=== PATIENT | female | born 1955 | race Caucasian/White ===

== ENCOUNTER 2021-09-07 05:12 | Inpatient (IN) | payer OTHER ==
[2021-09-07] MEDS ORDERED: KETOROLAC 15 MG/ML 1 ML VIAL IVP STA (05:35)
[2021-09-07] MEDS ORDERED: SODIUM CHLORIDE 0.9% 500 ML 500 ML IV STA (05:35)
[2021-09-07] MEDS ORDERED: SODIUM CHLORIDE 0.9% 1,000 ML IV STA ×2 (05:35)
[2021-09-07] MEDS ORDERED: ALBUTEROL HFA INHALER INHALATION STA (05:35)
[2021-09-07] MEDS ORDERED: DEXAMETHASONE SOD PHOSPHATE 10 MG/ML 1 ML VIAL IVP STA (05:35)
[2021-09-07] MEDS ORDERED: ACETAMINOPHEN TAB 500 MG TAB PO STA (05:35)
--- NOTE | 2021-09-07 05:38 | ED ---
SOB HPI - General Source: patient Mode of arrival: wheelchair Limitations: no limitations <Cosme Patel - Last Filed: 09/07/21 07:05> - General Source: patient, RN notes reviewed Mode of arrival: wheelchair Limitations: no limitations <Valdez Stanley - Last Filed: 09/07/21 07:47> - General Chief Complaint: Shortness of Breath Stated Complaint: SOB Time Seen by Provider: 09/07/21 05:17 - History of Present Illness Initial Comments: This a 65-year-old female presents to the emergency Department with chief complaint of cough congestion fever or chills. Patient states started Wednesday and Wednesday. Patient states the symptoms are progressing worsen. Patient has had no prior COVID-19 vaccination. Patient does have mild shortness of breath states that she just more achy, sightly dizzy. No GI symptoms. Patient is not taking any recent Tylenol Motrin. (Valdez Stanley) - Related Data Allergies Allergy/AdvReac Type Severity Reaction Status Date / Time No Known Allergies Allergy Verified 09/07/21 05:20 Review of Systems ROS Other: All systems not noted in ROS Statement are negative. <Cosme Patel - Last Filed: 09/07/21 07:05> ROS Other: All systems not noted in ROS Statement are negative. <Valdez Stanley - Last Filed: 09/07/21 07:47> ROS Statement: Those systems with pertinent positive or pertinent negative responses have been documented in the HPI. Past Medical History Past Medical History: Diabetes Mellitus, Hypertension History of Any Multi-Drug Resistant Organisms: None Reported Past Surgical History: Adenoidectomy, Appendectomy, Tonsillectomy Past Psychological History: No Psychological Hx Reported Smoking Status: Former smoker Past Alcohol Use History: None Reported Past Drug Use History: None Reported <Cosme Patel - Last Filed: 09/07/21 07:05> General Exam Limitations: no limitations <Cosme Patel - Last Filed: 09/07/21 07:05> General appearance: alert, in no apparent distress Head exam: Present: atraumatic, normocephalic, normal inspection Eye exam: Present: normal appearance, PERRL, EOMI. Absent: scleral icterus, conjunctival injection, periorbital swelling ENT exam: Present: normal exam, mucous membranes moist Neck exam: Present: normal inspection, full ROM. Absent: tenderness, meningismus, lymphadenopathy Respiratory exam: Present: decreased breath sounds. Absent: normal lung sounds bilaterally, respiratory distress, wheezes, rales, rhonchi, stridor Cardiovascular Exam: Present: normal rhythm, tachycardia, normal heart sounds. Absent: systolic murmur, diastolic murmur, rubs, gallop, clicks GI/Abdominal exam: Present: soft, normal bowel sounds. Absent: distended, tenderness, guarding, rebound, rigid <Valdez Stanley - Last Filed: 09/07/21 07:47> Course Vital Signs 09/07/21 09/07/21 09/07/21 05:13 06:19 06:48 Temperature 103.5 F H 102.8 F H Pulse Rate 118 H 102 H 94 Respiratory 20 18 18 Rate Blood Pressure 147/75 139/85 O2 Sat by Pulse 92 L 91 L 91 L Oximetry 09/07/21 07:42 Temperature Pulse Rate Respiratory Rate Blood Pressure O2 Sat by Pulse 88 L Oximetry Medical Decision Making - Lab Data Result diagrams: 09/07/21 06:02 09/07/21 06:02 - EKG Data -: EKG Interpreted by Me (EKG shows sinus tachycardia 102 IA 142 QRS 74 QTc 417) <Cosme Patel - Last Filed: 09/07/21 07:05> - Lab Data Result diagrams: 09/07/21 06:02 09/07/21 06:02 <Valdez Stanley - Last Filed: 09/07/21 07:47> - Medical Decision Making 64-year-old presented for cough congestion. Patient is positive for COVID-19. Patient did have some hypoxia events that 86-88 on room air. Patient be admitted for COVID-19. (Valdez Stanley) - Lab Data Lab Results 09/07/21 09/07/21 09/07/21 Range/Units 06:02 06:02 06:02 WBC 3.5 L (3.8-10.6) k/uL RBC 4.81 (3.80-5.40) m/uL Hgb 14.1 (11.4-16.0) gm/dL Hct 41.8 (34.0-46.0) % MCV 86.8 (80.0-100.0) fL MCH 29.3 (25.0-35.0) pg MCHC 33.8 (31.0-37.0) g/dL RDW 12.5 (11.5-15.5) % Plt Count 155 (150-450) k/uL MPV 7.9 Neutrophils % 73 % Lymphocytes % 18 % Monocytes % 6 % Eosinophils % 0 % Basophils % 1 % Neutrophils # 2.5 (1.3-7.7) k/uL Lymphocytes # 0.6 L (1.0-4.8) k/uL Monocytes # 0.2 (0-1.0) k/uL Eosinophils # 0.0 (0-0.7) k/uL Basophils # 0.0 (0-0.2) k/uL PT 10.3 (9.0-12.0) sec INR 1.0 (<1.2) APTT 23.1 (22.0-30.0) sec Sodium 136 L (137-145) mmol/L Potassium 5.0 (3.5-5.1) mmol/L Chloride 103 (98-107) mmol/L Carbon Dioxide 22 (22-30) mmol/L Anion Gap 11 mmol/L BUN 21 H (7-17) mg/dL Creatinine 1.06 H (0.52-1.04) mg/dL Est GFR (CKD-EPI)AfAm 65 (>60 ml/min/1.73 sqM) Est GFR (CKD-EPI)NonAf 56 (>60 ml/min/1.73 sqM) Glucose 194 H (74-99) mg/dL Plasma Lactic Acid Yoav (0.7-2.0) mmol/L Calcium 9.0 (8.4-10.2) mg/dL Magnesium 1.8 (1.6-2.3) mg/dL Total Bilirubin 0.3 (0.2-1.3) mg/dL AST 56 H (14-36) U/L ALT 26 (4-34) U/L Alkaline Phosphatase 74 (38-126) U/L Lactate Dehydrogenase 837 H (313-618) U/L C-Reactive Protein 17.1 H (<1.0) mg/dL Total Protein 6.8 (6.3-8.2) g/dL Albumin 4.0 (3.5-5.0) g/dL Coronavirus (PCR) (Not Detectd) 09/07/21 09/07/21 Range/Units 06:02 06:02 WBC (3.8-10.6) k/uL RBC (3.80-5.40) m/uL Hgb (11.4-16.0) gm/dL Hct (34.0-46.0) % MCV (80.0-100.0) fL MCH (25.0-35.0) pg MCHC (31.0-37.0) g/dL RDW (11.5-15.5) % Plt Count (150-450) k/uL MPV Neutrophils % % Lymphocytes % % Monocytes % % Eosinophils % % Basophils % % Neutrophils # (1.3-7.7) k/uL Lymphocytes # (1.0-4.8) k/uL Monocytes # (0-1.0) k/uL Eosinophils # (0-0.7) k/uL Basophils # (0-0.2) k/uL PT (9.0-12.0) sec INR (<1.2) APTT (22.0-30.0) sec Sodium (137-145) mmol/L Potassium (3.5-5.1) mmol/L Chloride (98-107) mmol/L Carbon Dioxide (22-30) mmol/L Anion Gap mmol/L BUN (7-17) mg/dL Creatinine (0.52-1.04) mg/dL Est GFR (CKD-EPI)AfAm (>60 ml/min/1.73 sqM) Est GFR (CKD-EPI)NonAf (>60 ml/min/1.73 sqM) Glucose (74-99) mg/dL Plasma Lactic Acid Yoav 1.0 (0.7-2.0) mmol/L Calcium (8.4-10.2) mg/dL Magnesium (1.6-2.3) mg/dL Total Bilirubin (0.2-1.3) mg/dL AST (14-36) U/L ALT (4-34) U/L Alkaline Phosphatase (38-126) U/L Lactate Dehydrogenase (313-618) U/L C-Reactive Protein (<1.0) mg/dL Total Protein (6.3-8.2) g/dL Albumin (3.5-5.0) g/dL Coronavirus (PCR) Detected A (Not Detectd) Disposition Is patient prescribed a controlled substance at d/c from ED?: No <Cosme Patel - Last Filed: 09/07/21 07:05> Time of Disposition: 07:47 <Valdez Stanley - Last Filed: 09/07/21 07:47> Clinical Impression: Coronavirus infection, Pneumonia due to COVID-19 virus, Hypoxia Disposition: ADMITTED IP TO THIS HOSP Condition: Fair Referrals: Nael Conner [Primary Care Provider] - 1-2 days
--- NOTE | 2021-09-07 06:11 | XR ---
EXAMINATION TYPE: XR chest 1V portable DATE OF EXAM: 09/07/2021 COMPARISON: NONE HISTORY: Pneumonia TECHNIQUE: Single view FINDINGS: Heart and mediastinum are within normal limits. Lungs are clear of consolidation. There are no hilar masses. There is some mild peripheral pulmonary infiltrate at the lateral lung bases. IMPRESSION: There is some mild peripheral pulmonary infiltrate at the lung bases. Normal heart.
[2021-09-07 06:20] LABS: Basophils % (A) 1 %; Eosinophils % (A) 0 %; HCT 41.8 % (34.0-46.0); HGB 14.1 gm/dL (11.4-16.0); Lymphocytes # (A) 0.6 k/uL (1.0-4.8); Lymphocytes % (A) 18 %; MCH 29.3 pg (25.0-35.0); MCHC 33.8 g/dL (31.0-37.0); MCV 86.8 fL (80.0-100.0); Mean Platelet Volume 7.9; Monocytes # (A) 0.2 k/uL (0-1.0); Monocytes % (A) 6 %; Neutrophils # (A) 2.5 k/uL (1.3-7.7); Neutrophils % (A) 73 %; Platelet Count 155 k/uL (150-450); RBC 4.81 m/uL (3.80-5.40); RDW 12.5 % (11.5-15.5); WBC 3.5 k/uL (3.8-10.6)
[2021-09-07 06:31] LABS: Magnesium 1.8 mg/dL (1.6-2.3); Total Bilirubin 0.3 mg/dL (0.2-1.3); Total Protein 6.8 g/dL (6.3-8.2)
[2021-09-07 06:37] LABS: Partial Thromboplastin Time 23.1 sec (22.0-30.0); Prothrombin Time 10.3 sec (9.0-12.0)
[2021-09-07 06:42] LABS: C Reactive Protein 17.1 mg/dL (<1.0)
[2021-09-07] MEDS ORDERED: IBUPROFEN 800 MG TAB PO STA (07:23)
[2021-09-07] MEDS ORDERED: CASIRIVIMAB/IMDEVIMAB (EUA) 1,200 MG in SODIUM CHLORIDE 0.9% 100 ML IVPB ONE (07:30)
[2021-09-07] MEDS ORDERED: ONDANSETRON 4 MG/2 ML VIAL IVP PRN (07:53)
[2021-09-07] MEDS ORDERED: NALOXONE 0.4 MG/ML 1 ML VIAL IV PRN (07:53)
[2021-09-07] MEDS ORDERED: IBUPROFEN 400 MG TAB PO PRN (07:53)
[2021-09-07] MEDS: SODIUM CHLORIDE 0.9% 1,000 ML IV SCH ×2 (07:57→17:04)
[2021-09-07] MEDS ORDERED: SODIUM CHLORIDE 0.9% 50 ML IVPB ONE (08:00)
--- NOTE | 2021-09-07 13:47 | P.CNPUL ---
History of Present Illness Consult date: 09/07/21 Reason for consult: dyspnea, pneumonia History of present illness: This is a 65-year-old female patient who came into the emergency department af ter complaining of some cough and chest congestion and some chills and feeling feverishness. Symptoms started to ask days ago and the patient has progressed since. The patient has no prior history of COVID 19 vaccination. In the emergency, she was complaining of some mild shortness of breath. She also was feeling dizzy. Further testing showed a fever of 103.5. She was hypoxic with pulse ox was under 90%. Her white count was at 3.5 with a platelet count of 155, creatinine was normal at 1.06. Normal coagulation profile. Mild transaminitis with an AST of 56, LDH was a 37, CRP was 17.1, glucose was 194, rest of the electrodes were all within normal limits. Lactic acid level was at 1.0 and the COVID 19 testing was negative. The patient's chest x-ray showed bilateral pulmonary infiltrates consistent with pneumonia and the patient was started on Decadron. The patient is currently on oxygen at 2 L per minute. The pro calcitonin level is at 0.25. D-dimer has not been checked yet. Review of Systems Constitutional: Reports fatigue (Average but he hasn't), Reports fever, Reports weakness Eyes: denies as per HPI, denies blurred vision, denies bulging eye, denies decreased vision, denies diplopia, denies discharge, denies dry eye, denies irritation, denies itching, denies pain, denies photophobia, denies loss of p eripheral vision, denies loss of vision, denies tunnel vision/blind spots Ears: deny: decreased hearing, ear discharge, earache, tinnitus Ears, nose, mouth and throat: Reports as per HPI Breasts: absent: as per HPI, change in shape, gynecomastia, masses, nipple discharge, pain, skin changes, swelling Cardiovascular: Reports as per HPI Respiratory: Reports as per HPI, Reports cough, Reports dyspnea Gastrointestinal: Reports as per HPI Genitourinary: Reports as per HPI Menstruation: Reports as per HPI Musculoskeletal: Reports as per HPI Musculoskeletal: absent: ankle pain, ankle stiffness, ankle swelling, as per HPI, elbow pain, elbow stiffness, elbow swelling, foot pain, foot stiffness, foot swelling, hand pain, hand stiffness, hand swelling, hip pain, hip stiffness, hip swelling, knee pain, knee stiffness, knee swelling, shoulder pain, shoulder stiffness, shoulder swelling, wrist pain, wrist stiffness, wrist swelling Integumentary: Reports as per HPI Neurological: Reports as per HPI Psychiatric: Reports as per HPI Endocrine: Reports as per HPI Hematologic/Lymphatic: Reports as per HPI Past Medical History Past Medical History: Diabetes Mellitus, Hypertension History of Any Multi-Drug Resistant Organisms: None Reported Past Surgical History: Adenoidectomy, Appendectomy, Tonsillectomy Past Psychological History: No Psychological Hx Reported Smoking Status: Former smoker Past Alcohol Use History: None Reported Past Drug Use History: None Reported Medications and Allergies Home Medications Medication Instructions Recorded Confirmed Type Atorvastatin Calcium [Lipitor] 5 mg PO Q48H 09/07/21 09/07/21 History Cholecalciferol [Vitamin D3 (25 50 mcg PO DAILY 09/07/21 09/07/21 History Mcg = 1000 Iu)] Losartan Potassium 100 mg PO DAILY 09/07/21 09/07/21 History Ubidecarenone [Co Q-10] 100 mg PO DAILY 09/07/21 09/07/21 History glipiZIDE [Glucotrol XL] 2.5 mg PO BID 09/07/21 09/07/21 History metFORMIN HCL [Glucophage XR] 1,500 mg PO W/SUPPER 09/07/21 09/07/21 History Allergies Allergy/AdvReac Type Severity Reaction Status Date / Time No Known Allergies Allergy Verified 09/07/21 05:20 Physical Exam Vitals: Vital Signs Temp Pulse Resp BP Pulse Ox 09/07/21 11:02 84 18 98/54 96 09/07/21 08:59 98.6 F 86 20 120/69 94 L 09/07/21 08:40 98.3 F 09/07/21 07:49 95 24 138/75 92 L 09/07/21 07:42 88 L 09/07/21 06:48 102.8 F H 94 18 91 L 09/07/21 06:19 102 H 18 139/85 91 L 09/07/21 05:13 103.5 F H 118 H 20 147/75 92 L Intake and Output 09/06/21 09/07/21 09/07/21 22:59 06:59 14:59 Other: Weight 81.647 kg General appearance: alert, in no apparent distress, the patient's breathing is nonlabored. Currently she is on oxygen at 2 L and her pulse ox is around 96%. She is breathing very comfortably at this point in time. She is communicating. No confusion. No altered mentation. Head exam: Present: atraumatic, normocephalic, normal inspection Eye exam: Present: normal appearance, PERRL, EOMI. Absent: scleral icterus, conjunctival injection, periorbital swelling ENT exam: Present: normal exam, mucous membranes moist Neck exam: Present: normal inspection, full ROM. Absent: tenderness, meningismus, lymphadenopathy Respiratory exam: Present: decreased breath sounds. Absent: normal lung sounds bilaterally, respiratory distress, wheezes, rales, rhonchi, stridor Cardiovascular Exam: Present: normal rhythm, tachycardia, normal heart sounds. Absent: systolic murmur, diastolic murmur, rubs, gallop, clicks GI/Abdominal exam: Present: soft, normal bowel sounds. Absent: distended, tenderness, guarding, rebound, rigid Examination of the extremities revealed easily palpable radial, femoral and pedal pulses. There was no cyanosis, clubbing or edema. Examination of the skin revealed no evidence of significant rashes, suspicious appearing nevi or other concerning lesions. Results - Laboratory Findings CBC and BMP: 09/07/21 06:02 09/07/21 06:02 PT/INR, D-dimer PT 10.3 sec (9.0-12.0) 09/07/21 06:02 INR 1.0 (<1.2) 09/07/21 06:02 Abnormal lab findings: Abnormal Labs 09/07/21 09/07/21 09/07/21 06:02 06:02 06:02 WBC 3.5 L Lymphocytes # 0.6 L Sodium 136 L BUN 21 H Creatinine 1.06 H Glucose 194 H Ferritin 469.0 H AST 56 H Lactate Dehydrogenase 837 H C-Reactive Protein 17.1 H Procalcitonin 0.25 H Coronavirus (PCR) 09/07/21 06:02 WBC Lymphocytes # Sodium BUN Creatinine Glucose Ferritin AST Lactate Dehydrogenase C-Reactive Protein Procalcitonin Coronavirus (PCR) Detected A - Diagnostic Findings Chest x-ray: image reviewed Assessment and Plan Plan: 1 acute COVID 19 related pneumonia. The patient symptoms started approximately 5 days ago and since then she's been having increased fever, chills, increased cough and some mild shortness of breath. She presented to us with hypoxemia and currently she is on 2 L about 2 by nasal cannula. Her is also infected. The patient is not vaccinated. She has mild elevation of inflammatory markers at this point in time. She is hemodynamically stable. Comorbidities include diabetes mellitus and hypertension 2 acute hypoxic respiratory failure secondary to above 3 diabetes mellitus 4 hypertension Plan We'll admit this patient to the hospital and keep her on oxygen at 2 L and monitor oxygen flow and saturation We'll start the patient on Decadron 6 mg IV every 24 hours She is an excellent candidate for Remdesivir this will be started per protocol We'll keep her on Lovenox 40 mg subcu for DVT prophylaxis Will monitor inflammatory markers We are going to check a baseline d-dimer She is essentially healthy yet nonvaccinated. She should have a good outcome theoretically. We'll continue to follow. Chest x-ray was reviewed and shows b ilateral lower lobe pulmonary infiltrates consistent with COVID 19 related pneumonia. We'll monitor the blood sugar. We'll continue to follow.
--- NOTE | 2021-09-07 14:05 | P.HPIM ---
History of Present Illness H&P Date: 09/07/21 This is a 65-year-old female with past medical history noted below significant for underlying diabetes that presented to the emergency room with worsening cough and shortness of breath. Patient was seen and evaluated by me this morning in the emergency room. Patient said that her symptoms started few days ago and is being getting progressively worse. Cough is generally nonproductive associated with feverish feeling. Patient denies any sick contact. She is not vaccinated for COVID-19. Patient was evaluated in the ER and was found to be hypoxic with O2 sat on room air around 85%. She tested positive for COVID-19. She will be admitted to the hospital for further management. Review of Systems Review of system: 14 points review of systems were obtained and were negative except to what were mentioned in the HPI. Past Medical History Past Medical History: Diabetes Mellitus, Hypertension History of Any Multi-Drug Resistant Organisms: None Reported Past Surgical History: Adenoidectomy, Appendectomy, Tonsillectomy Past Psychological History: No Psychological Hx Reported Smoking Status: Former smoker Past Alcohol Use History: None Reported Past Drug Use History: None Reported Medications and Allergies Home Medications Medication Instructions Recorded Confirmed Type Atorvastatin Calcium [Lipitor] 5 mg PO Q48H 09/07/21 09/07/21 History Cholecalciferol [Vitamin D3 (25 50 mcg PO DAILY 09/07/21 09/07/21 History Mcg = 1000 Iu)] Losartan Potassium 100 mg PO DAILY 09/07/21 09/07/21 History Ubidecarenone [Co Q-10] 100 mg PO DAILY 09/07/21 09/07/21 History glipiZIDE [Glucotrol XL] 2.5 mg PO BID 09/07/21 09/07/21 History metFORMIN HCL [Glucophage XR] 1,500 mg PO W/SUPPER 09/07/21 09/07/21 History Allergies Allergy/AdvReac Type Severity Reaction Status Date / Time No Known Allergies Allergy Verified 09/07/21 05:20 Physical Exam Vitals: Vital Signs Temp Pulse Resp BP Pulse Ox 09/07/21 11:02 84 18 98/54 96 09/07/21 08:59 98.6 F 86 20 120/69 94 L 09/07/21 08:40 98.3 F 09/07/21 07:49 95 24 138/75 92 L 09/07/21 07:42 88 L 09/07/21 06:48 102.8 F H 94 18 91 L 09/07/21 06:19 102 H 18 139/85 91 L 09/07/21 05:13 103.5 F H 118 H 20 147/75 92 L Intake and Output 09/06/21 09/07/21 09/07/21 22:59 06:59 14:59 Other: Weight 81.647 kg General: The patient is awake and alert, in no distress Eye: there is normal conjunctiva bilaterally. Neck: The neck is supple, there is no JVD. Cardiovascular: Normal S1-S2, no S3-S4, no murmurs. Respiratory: Lungs clear to auscultation bilaterally Gastrointestinal: Abdomen is soft, nontender Musculoskeletal: There is no pedal edema. Neurological:. Speech is normal. Skin: Skin is warm and dry Results CBC & Chem 7: 09/07/21 06:02 09/07/21 06:02 Labs: Abnormal Lab Results - Last 24 Hours (Table) 09/07/21 09/07/21 09/07/21 Range/Units 06:02 06:02 06:02 WBC 3.5 L (3.8-10.6) k/uL Lymphocytes # 0.6 L (1.0-4.8) k/uL Sodium 136 L (137-145) mmol/L BUN 21 H (7-17) mg/dL Creatinine 1.06 H (0.52-1.04) mg/dL Glucose 194 H (74-99) mg/dL Ferritin 469.0 H (10.0-291.0) ng/mL AST 56 H (14-36) U/L Lactate Dehydrogenase 837 H (313-618) U/L C-Reactive Protein 17.1 H (<1.0) mg/dL Procalcitonin 0.25 H (0.02-0.09) ng/mL Coronavirus (PCR) (Not Detectd) 09/07/21 Range/Units 06:02 WBC (3.8-10.6) k/uL Lymphocytes # (1.0-4.8) k/uL Sodium (137-145) mmol/L BUN (7-17) mg/dL Creatinine (0.52-1.04) mg/dL Glucose (74-99) mg/dL Ferritin (10.0-291.0) ng/mL AST (14-36) U/L Lactate Dehydrogenase (313-618) U/L C-Reactive Protein (<1.0) mg/dL Procalcitonin (0.02-0.09) ng/mL Coronavirus (PCR) Detected A (Not Detectd) Assessment and Plan Assessment: This is a 65-year-old female with past medical history noted below Presented to the emergency room with worsening shortness of breath and cough. She was evaluated and admitted to the hospital for further management of her medical problems noted below. 1. COVID-19 pneumonia with acute hypoxic respiratory failure: seen and evaluated by pulmonary. Started on Decadron and Remdesivir day #1. Continue vitamin C, vitamin D, and zinc supplements. 2. Type 2 diabetes, hold oral agents and continue sliding scale insulin 3. Mild acute kidney injury 4. Chronic medical problems: Essential hypertension, hyperlipidemia. Continue home medications 5. DVT prophylaxis with subcu Lovenox 6. CODE STATUS, patient is DO NOT RESUSCITATE/DO NOT INTUBATE. Discussed with her in detail is today at bedside Today, I reviewed her medication list and lab work results. Continue IV fluid hydration. Repeat lab work in the morning.
[2021-09-07] MEDS ORDERED: REMDESIVIR 200 MG in SODIUM CHLORIDE 0.9% 250 ML IVPB ONE (15:00)
[2021-09-07] MEDS: ATORVASTATIN 10 MG TAB PO SCH (15:34)
[2021-09-07 16:51] LABS: Glucose,Whole Blood 347 mg/dL (75-99)
[2021-09-07] MEDS: INSULIN ASPART (NovoLOG) 100 UNIT/ML VIAL SQ SCH ×2 (17:02→17:13)
[2021-09-07 21:03] LABS: Glucose,Whole Blood 374 mg/dL (75-99)
[2021-09-07] MEDS ORDERED: INSULIN ASPART (NovoLOG) 100 UNIT/ML VIAL SQ ONE (21:51)
[2021-09-08] MEDS: ACETAMINOPHEN TAB 325 MG TAB PO PRN (06:13)
[2021-09-08 07:28] LABS: Glucose,Whole Blood 255 mg/dL (75-99)
[2021-09-08] MEDS: LOSARTAN 50 MG TAB PO SCH (08:02)
[2021-09-08] MEDS: ZINC SULFATE 220 MG CAP PO SCH (08:02)
[2021-09-08] MEDS: ASCORBIC ACID 500 MG TAB PO SCH (08:02)
[2021-09-08] MEDS: CHOLECALCIFEROL 25 MCG (1000 IU) TABLET PO SCH (08:02)
[2021-09-08] MEDS: DEXAMETHASONE SOD PHOSPHATE 10 MG/ML 1 ML VIAL IVP SCH (08:02)
[2021-09-08] MEDS: ENOXAPARIN 40 MG/0.4 ML SYRINGE SQ SCH (08:03)
[2021-09-08] MEDS: INSULIN ASPART (NovoLOG) 100 UNIT/ML VIAL SQ SCH ×4 (08:03→21:49)
[2021-09-08 08:53] LABS: African American GFR (CKD) >90 (>60 ml/min/1.73 sqM); Anion Gap 9 mmol/L; Blood Urea Nitrogen 18 mg/dL (7-17); Calcium 8.1 mg/dL (8.4-10.2); Carbon Dioxide 22 mmol/L (22-30); Chloride 105 mmol/L (98-107); Glucose 306 mg/dL (74-99); Non-African American GFR(CKD) 88 (>60 ml/min/1.73 sqM); Potassium 4.5 mmol/L (3.5-5.1); Sodium 136 mmol/L (137-145)
[2021-09-08] MEDS ORDERED: NON FORMULARY DRUG (Ubidecarenone [Co Q-10] 100 MG Capsule) PO SCH (09:00)
[2021-09-08] MEDS: SODIUM CHLORIDE 0.9% 1,000 ML IV SCH (09:24)
[2021-09-08 11:09] LABS: Basophils # (A) 0.01 X 10*3/uL (0.00-0.10); Basophils % (A) 0.1 %; Eosinophils # (A) 0 X 10*3/uL (0.04-0.35); Eosinophils % (A) 0 %; HCT 37.7 % (37.2-46.3); HGB 12.3 g/dL (12.0-15.0); Lymphocytes # (A) 0.95 X 10*3/uL (0.90-5.00); Lymphocytes % (A) 12.6 %; MCH 28.1 pg (27.0-32.0); MCHC 32.6 g/dL (32.0-37.0); MCV 86.1 fL (80.0-97.0); Monocytes # (A) 0.67 X 10*3/uL (0.20-1.00); Monocytes % (A) 8.9 %; Neutrophils # (A) 5.86 X 10*3/uL (1.80-7.70); Neutrophils % (A) 77.9 %; Platelet Count 193 X 10*3/uL (140-440); RBC 4.38 X 10*6/uL (4.10-5.20); RDW 12.5 % (11.5-14.5); WBC 7.53 X 10*3/uL (4.50-10.00)
[2021-09-08 11:35] LABS: Glucose,Whole Blood 225 mg/dL (75-99)
[2021-09-08] MEDS: REMDESIVIR 100 MG in SODIUM CHLORIDE 0.9% 250 ML IVPB SCH (14:53)
--- NOTE | 2021-09-08 16:47 | P.PN ---
Subjective Patient is doing fairly well today. She denies any shortness of breath. Events overnight reported by nursing staff. Objective - Vital Signs Vital signs: Vital Signs Temp 98.0 F 09/08/21 14:59 Pulse 75 09/08/21 14:59 Resp 18 09/08/21 14:59 BP 147/71 09/08/21 14:59 Pulse Ox 92 L 09/08/21 15:03 Intake & Output 09/07/21 09/08/21 09/08/21 18:59 06:59 18:59 Weight 81.647 kg Other: Voiding Method Toilet # Voids 2 - Exam General: The patient is awake and alert, in no distress Eye: there is normal conjunctiva bilaterally. Neck: The neck is supple, there is no JVD. Cardiovascular: Normal S1-S2, no S3-S4, no murmurs. Respiratory: Lungs clear to auscultation bilaterally Gastrointestinal: Abdomen is soft, nontender Musculoskeletal: There is no pedal edema. Neurological:. Speech is normal. Skin: Skin is warm and dry - Labs CBC & Chem 7: 09/08/21 08:02 09/08/21 08:02 Labs: Abnormal Lab Results - Last 24 Hours (Table) 09/07/21 09/07/21 09/08/21 Range/Units 16:48 21:01 07:22 Eosinophils # (0.04-0.35) X 10*3/uL Sodium (137-145) mmol/L BUN (7-17) mg/dL Glucose (74-99) mg/dL POC Glucose (mg/dL) 347 H 374 H 255 H (75-99) mg/dL Calcium (8.4-10.2) mg/dL 09/08/21 09/08/21 09/08/21 Range/Units 08:02 08:02 11: Eosinophils # 0 L (0.04-0.35) X 10*3/uL Sodium 136 L (137-145) mmol/L BUN 18 H (7-17) mg/dL Glucose 306 H (74-99) mg/dL POC Glucose (mg/dL) 225 H (75-99) mg/dL Calcium 8.1 L (8.4-10.2) mg/dL Assessment and Plan Assessment: This is a 65-year-old female with past medical history noted below Presented to the emergency room with worsening shortness of breath and cough. She was evaluated and admitted to the hospital for further management of her medical problems noted below. 1. COVID-19 pneumonia with acute hypoxic respiratory failure: seen and evaluated by pulmonary. Started on Decadron and Remdesivir day #2. Continue vitamin C, vitamin D, and zinc supplements. 2. Type 2 diabetes, hold oral agents and continue sliding scale insulin 3. Mild acute kidney injury 4. Chronic medical problems: Essential hypertension, hyperlipidemia. Continue home medications 5. DVT prophylaxis with subcu Lovenox 6. CODE STATUS, patient is DO NOT RESUSCITATE/DO NOT INTUBATE. Discussed with her in detail is today at bedside Today, I reviewed her medication list and lab work results. Continue current regimen.
[2021-09-08 17:15] LABS: Glucose,Whole Blood 246 mg/dL (75-99)
--- NOTE | 2021-09-08 18:10 | P.PN ---
Subjective Progress Note Date: 09/08/21 Principal diagnosis: Hypoxia, COVID-19 pneumonia This is a 65-year-old female patient who came into the emergency department after complaining of some cough and chest congestion and some chills and feeling feverishness. Symptoms started to ask days ago and the patient has progressed since. The patient has no prior history of COVID 19 vaccination. In the emergency, she was complaining of some mild shortness of breath. She also was feeling dizzy. Further testing showed a fever of 103.5. She was hypoxic with pulse ox was under 90%. Her white count was at 3.5 with a platelet count of 155, creatinine was normal at 1.06. Normal coagulation profile. Mild transaminitis with an AST of 56, LDH was a 37, CRP was 17.1, glucose was 194, rest of the electrodes were all within normal limits. Lactic acid level was at 1.0 and the COVID 19 testing was negative. The patient's chest x-ray showed bilateral pulmonary infiltrates consistent with pneumonia and the patient was s tarted on Decadron. The patient is currently on oxygen at 2 L per minute. The pro calcitonin level is at 0.25. D-dimer has not been checked yet. On 09/08/2021 patient seen in follow-up on medical surgical floor, today is day 2 of Remdesivir treatment, patient also remains on Decadron 6 mg daily, in addition to prophylactic Lovenox 40 mg daily. She is sitting up in her chair, she states she is feeling better, denies any acute distress, she remains on 3 L of oxygen pulse ox of 92%, no fever or chills. Her chest x-ray on admission showed mild peripheral pulmonary infiltrates at the lung bases, normal heart. Today's labs have been reviewed, CBC is relatively unremarkable, electrolytes and renal profile were unremarkable Objective - Vital Signs Vital signs: Vital Signs Temp 98.0 F 09/08/21 14:59 Pulse 75 09/08/21 14:59 Resp 18 09/08/21 14:59 BP 147/71 09/08/21 14:59 Pulse Ox 92 L 09/08/21 15:03 Intake & Output 09/07/21 09/08/21 09/08/21 18:59 06:59 18:59 Weight 81.647 kg Other: Voiding Method Toilet # Voids 2 - Exam GENERAL EXAM: Alert, very pleasant, 65-year-old white female, on 3 L of oxygen the pulse ox 92% comfortable in no apparent distress. HEAD: Normocephalic/atraumatic. EYES: Normal reaction of pupils, equal size. Conjunctiva pink, sclera white. NOSE: Clear with pink turbinates. THROAT: No erythema or exudates. NECK: No masses, no JVD, no thyroid enlargement, no adenopathy. CHEST: No chest wall deformity. Symmetrical expansion. LUNGS: Equal air entry with mild bibasilar crackles CVS: Regular rate and rhythm, normal S1 and S2, no gallops, no murmurs, no rubs ABDOMEN: Soft, nontender. No hepatosplenomegaly, normal bowel sounds, no guarding or rigidity. EXTREMITIES: No clubbing, no edema, no cyanosis, 2+ pulses and upper and lower extremities. MUSCULOSKELETAL: Muscle strength and tone normal. SPINE: No scoliosis or deformity SKIN: No rashes CENTRAL NERVOUS SYSTEM: Alert and oriented -3. No focal deficits, tone is normal in all 4 extremities. PSYCHIATRIC: Alert and oriented -3. Appropriate affect. Intact judgment and insight. - Labs CBC & Chem 7: 09/08/21 08:02 09/08/21 08:02 Labs: Abnormal Lab Results - Last 24 Hours (Table) 09/07/21 09/08/21 09/08/21 Range/Units 21:01 07:22 08:02 Eosinophils # 0 L (0.04-0.35) X 10*3/uL Sodium (137-145) mmol/L BUN (7-17) mg/dL Glucose (74-99) mg/dL POC Glucose (mg/dL) 374 H 255 H (75-99) mg/dL Calcium (8.4-10.2) mg/dL 09/08/21 09/08/21 09/08/21 Range/Units 08:02 11:22 17:11 Eosinophils # (0.04-0.35) X 10*3/uL Sodium 136 L (137-145) mmol/L BUN 18 H (7-17) mg/dL Glucose 306 H (74-99) mg/dL POC Glucose (mg/dL) 225 H 246 H (75-99) mg/dL Calcium 8.1 L (8.4-10.2) mg/dL Assessment and Plan Plan: Assessment: #1. Acute COVID-19 pneumonia, patient came into the emergency department within 5 days of symptom onset in her symptoms including fever, cough, and shortness of breath. She was also hypoxic on presentation and requiring supplemental oxygen, she was not vaccinated, her is also infected. Patient was started on Remdesivir on 09/07/2021 #2. Acute hypoxic respiratory failure related to the above #3. Diabetes mellitus type 2 #4. Hypertension Plan: Continue Remdesivir, and today's day 2 of treatment Continue Decadron Continue prophylactic Lovenox Continue COVID 19 vitamins Patient is feeling better, breathing easier We'll continue to follow her clinical course I performed a history & physical examination of the patient and discussed their management with my nurse practitioner, Edna Flores. I reviewed the nurse practitioner's note and agree with the documented findings and plan of care. Lung sounds are positive for bibasilar crackles throughout the lung villalba. The findings and the impression was discussed with the patient. I attest to the documentation by the nurse practitioner. Time with Patient: Less than 30
[2021-09-08 19:52] LABS: Glucose,Whole Blood 311 mg/dL (75-99)
[2021-09-08] MEDS: INSULIN DETEMIR (LEVEMIR) 100 UNIT/ML SYR SQ SCH (21:49)
[2021-09-09 07:11] LABS: Glucose,Whole Blood 187 mg/dL (75-99)
--- NOTE | 2021-09-09 07:53 | XR ---
EXAMINATION TYPE: XR chest 1V portable DATE OF EXAM: 09/09/2021 CLINICAL HISTORY: Difficulty breathing progress study. COVID. TECHNIQUE: Single AP portable upright view of the chest is obtained. COMPARISON: Chest x-ray from 2 days earlier FINDINGS: There are worsening multifocal and confluent opacities in the periphery of both lungs. Car diac silhouette size stable and upper limits of normal. Osseous structures are intact. IMPRESSION: Worsening bilateral multifocal and confluent opacities in the periphery of the lungs cons istent with covid-19 infection progression.
[2021-09-09] MEDS: DEXAMETHASONE SOD PHOSPHATE 10 MG/ML 1 ML VIAL IVP SCH (08:08)
[2021-09-09] MEDS: ENOXAPARIN 40 MG/0.4 ML SYRINGE SQ SCH (08:08)
[2021-09-09] MEDS: ASCORBIC ACID 500 MG TAB PO SCH (08:09)
[2021-09-09] MEDS: ZINC SULFATE 220 MG CAP PO SCH (08:09)
[2021-09-09] MEDS: LOSARTAN 50 MG TAB PO SCH (08:09)
[2021-09-09] MEDS: CHOLECALCIFEROL 25 MCG (1000 IU) TABLET PO SCH (08:09)
[2021-09-09 11:40] LABS: Glucose,Whole Blood 231 mg/dL (75-99)
--- NOTE | 2021-09-09 12:10 | P.PN ---
Subjective Progress Note Date: 09/09/21 Principal diagnosis: Hypoxia, COVID-19 pneumonia This is a 65-year-old female patient who came into the emergency department after complaining of some cough and chest congestion and some chills and feeling feverishness. Symptoms started to ask days ago and the patient has progressed since. The patient has no prior history of COVID 19 vaccination. In the emergency, she was complaining of some mild shortness of breath. She also was feeling dizzy. Further testing showed a fever of 103.5. She was hypoxic with pulse ox was under 90%. Her white count was at 3.5 with a platelet count of 155, creatinine was normal at 1.06. Normal coagulation profile. Mild transaminitis with an AST of 56, LDH was a 37, CRP was 17.1, glucose was 194, rest of the electrodes were all within normal limits. Lactic acid level was at 1.0 and the COVID 19 testing was negative. The patient's chest x-ray showed bilateral pulmonary infiltrates consistent with pneumonia and the patient was s tarted on Decadron. The patient is currently on oxygen at 2 L per minute. The pro calcitonin level is at 0.25. D-dimer has not been checked yet. On 09/08/2021 patient seen in follow-up on medical surgical floor, today is day 2 of Remdesivir treatment, patient also remains on Decadron 6 mg daily, in addition to prophylactic Lovenox 40 mg daily. She is sitting up in her chair, she states she is feeling better, denies any acute distress, she remains on 3 L of oxygen pulse ox of 92%, no fever or chills. Her chest x-ray on admission showed mild peripheral pulmonary infiltrates at the lung bases, normal heart. Today's labs have been reviewed, CBC is relatively unremarkable, electrolytes and renal profile were unremarkable On 09/09/2021 patient seen in follow-up on medical surgical floor. She is currently on 3 L of oxygen, her pulse ox is 89%, she still coughing, but overall she feels better, she is ambulating in the room, she is trying to stay active, today is day 3 of Remdesivir. Decadron 6 mg daily, and prophylactic dose of Lovenox 40 mg daily, in addition she is also on COVID-19 vitamins. No new labs today. Follow-up chest x-ray was questionable bilateral multifocal and co nfluent opacities in the periphery of the lungs consistent with COVID-19 infection progression. No fever or chills, vital signs have been stable overnight. Objective - Vital Signs Vital signs: Vital Signs Temp 98.3 F 09/09/21 05:41 Pulse 94 09/09/21 05:41 Resp 16 09/09/21 05:41 BP 128/78 09/09/21 05:41 Pulse Ox 89 L 09/09/21 08:39 Intake & Output 09/08/21 09/09/21 09/09/21 18:59 06:59 18:59 Other: Voiding Method Toilet # Voids 2 2 - Exam GENERAL EXAM: Alert, very pleasant, 65-year-old white female, on 3 L of oxygen the pulse ox 89% comfortable in no apparent distress. HEAD: Normocephalic/atraumatic. EYES: Normal reaction of pupils, equal size. Conjunctiva pink, sclera white. NOSE: Clear with pink turbinates. THROAT: No erythema or exudates. NECK: No masses, no JVD, no thyroid enlargement, no adenopathy. CHEST: No chest wall deformity. Symmetrical expansion. LUNGS: Equal air entry with mild bibasilar crackles CVS: Regular rate and rhythm, normal S1 and S2, no gallops, no murmurs, no rubs ABDOMEN: Soft, nontender. No hepatosplenomegaly, normal bowel sounds, no guarding or rigidity. EXTREMITIES: No clubbing, no edema, no cyanosis, 2+ pulses and upper and lower extremities. MUSCULOSKELETAL: Muscle strength and tone normal. SPINE: No scoliosis or deformity SKIN: No rashes CENTRAL NERVOUS SYSTEM: Alert and oriented -3. No focal deficits, tone is normal in all 4 extremities. PSYCHIATRIC: Alert and oriented -3. Appropriate affect. Intact judgment and insight. - Labs CBC & Chem 7: 09/08/21 08:02 09/08/21 08:02 Labs: Abnormal Lab Results - Last 24 Hours (Table) 09/08/21 09/08/21 09/09/21 Range/Units 17:11 19:50 07:06 POC Glucose (mg/dL) 246 H 311 H 187 H (75-99) mg/dL 09/09/21 Range/Units 11:39 POC Glucose (mg/dL) 231 H (75-99) mg/dL Assessment and Plan Plan: Assessment: #1. Acute COVID-19 pneumonia, patient came into the emergency department within 5 days of symptom onset in her symptoms including fever, cough, and shortness of breath. She was also hypoxic on presentation and requiring supplemental oxygen, she was not vaccinated, her is also infected. Patient was started on Remdesivir on 09/07/2021 #2. Acute hypoxic respiratory failure related to the above #3. Diabetes mellitus type 2 #4. Hypertension Plan: Continue Remdesivir, and today's day 3 of treatment Continue Decadron 6 mg daily Continue prophylactic Lovenox Continue COVID 19 vitamins We will obtain a follow-up labs, d-dimer, and inflammatory markers for tomorrow Monitor for worsening hypoxia or dyspnea Clinically patient states she is feeling better, breathing easier We'll continue to monitor her clinical course And if no worsening and patient remains on minimal supplemental oxygen may consider discharge home in the next 24-48 hours I performed a history & physical examination of the patient and discussed their management with my nurse practitioner, Edna Flores. I reviewed the nurse practitioner's note and agree with the documented findings and plan of care. Lung sounds are positive for bibasilar crackles throughout the lung villalba. The findings and the impression was discussed with the patient. I attest to the documentation by the nurse practitioner. Time with Patient: Less than 30
[2021-09-09] MEDS: INSULIN ASPART (NovoLOG) 100 UNIT/ML VIAL SQ SCH ×4 (12:37→20:57)
[2021-09-09] MEDS: REMDESIVIR 100 MG in SODIUM CHLORIDE 0.9% 250 ML IVPB SCH (15:19)
[2021-09-09] MEDS: ATORVASTATIN 10 MG TAB PO SCH (15:19)
[2021-09-09] MEDS ORDERED: SODIUM CHLORIDE 0.65% NASAL SPRAY 44 ML BTL NASAL PRN (15:20)
[2021-09-09 16:29] LABS: Glucose,Whole Blood 234 mg/dL (75-99)
--- NOTE | 2021-09-09 19:04 | P.PN ---
Subjective Patient is doing fairly well today. She denies any shortness of breath. Events overnight reported by nursing staff. Objective - Vital Signs Vital signs: Vital Signs Temp 98.2 F 09/09/21 18:00 Pulse 83 09/09/21 18:00 Resp 18 09/09/21 18:00 BP 167/68 09/09/21 18:00 Pulse Ox 90 L 09/09/21 18:00 Intake & Output 09/08/21 09/09/21 09/09/21 18:59 06:59 18:59 Intake Total 1750 Balance 1750 Intake: Intake, IV Titration 250 Amount Remdesivir 100 mg In 250 Sodium Chloride 0.9% 250 ml @ 250 mls/hr IVPB DAILY@1500 [facility] Rx#: [id number] Oral 1500 Other: Voiding Method Toilet # Voids 2 2 5 - Exam General: The patient is awake and alert, in no distress Eye: there is normal conjunctiva bilaterally. Neck: The neck is supple, there is no JVD. Cardiovascular: Normal S1-S2, no S3-S4, no murmurs. Respiratory: Lungs clear to auscultation bilaterally Gastrointestinal: Abdomen is soft, nontender Musculoskeletal: There is no pedal edema. Neurological:. Speech is normal. Skin: Skin is warm and dry - Labs CBC & Chem 7: 09/08/21 08:02 09/08/21 08:02 Labs: Abnormal Lab Results - Last 24 Hours (Table) 09/08/21 09/09/21 09/09/21 Range/Units 19:50 07:06 11:39 POC Glucose (mg/dL) 311 H 187 H 231 H (75-99) mg/dL 09/09/21 Range/Units 16:28 POC Glucose (mg/dL) 234 H (75-99) mg/dL Assessment and Plan Assessment: This is a 65-year-old female with past medical history noted below Presented to the emergency room with worsening shortness of breath and cough. She was evaluated and admitted to the hospital for further management of her medical problems noted below. 1. COVID-19 pneumonia with acute hypoxic respiratory failure: seen and evaluated by pulmonary. Started on Decadron and Remdesivir day #2. Continue vitamin C, vitamin D, and zinc supplements. 2. Type 2 diabetes, hold oral agents and continue sliding scale insulin 3. Mild acute kidney injury 4. Chronic medical problems: Essential hypertension, hyperlipidemia. Continue home medications 5. DVT prophylaxis with subcu Lovenox 6. CODE STATUS, patient is DO NOT RESUSCITATE/DO NOT INTUBATE. Discussed with her in detail is today at bedside Today, I reviewed her medication list and lab work results. Continue current regimen.
[2021-09-09 20:55] LABS: Glucose,Whole Blood 272 mg/dL (75-99)
[2021-09-09] MEDS: INSULIN DETEMIR (LEVEMIR) 100 UNIT/ML SYR SQ SCH (20:58)
[2021-09-10 07:20] LABS: Glucose,Whole Blood 192 mg/dL (75-99)
[2021-09-10] MEDS: CHOLECALCIFEROL 25 MCG (1000 IU) TABLET PO SCH (07:55)
[2021-09-10] MEDS: INSULIN ASPART (NovoLOG) 100 UNIT/ML VIAL SQ SCH ×4 (07:55→20:31)
[2021-09-10] MEDS: ZINC SULFATE 220 MG CAP PO SCH (07:55)
[2021-09-10] MEDS: ASCORBIC ACID 500 MG TAB PO SCH (07:55)
[2021-09-10] MEDS: ENOXAPARIN 40 MG/0.4 ML SYRINGE SQ SCH (07:56)
[2021-09-10] MEDS: LOSARTAN 50 MG TAB PO SCH (07:56)
[2021-09-10] MEDS: DEXAMETHASONE SOD PHOSPHATE 10 MG/ML 1 ML VIAL IVP SCH (09:41)
[2021-09-10] MEDS: ACETAMINOPHEN TAB 325 MG TAB PO PRN (10:04)
[2021-09-10 11:52] LABS: Glucose,Whole Blood 294 mg/dL (75-99)
--- NOTE | 2021-09-10 12:31 | P.PN ---
Subjective Progress Note Date: 09/10/21 Principal diagnosis: Hypoxia, COVID-19 pneumonia This is a 65-year-old female patient who came into the emergency department after complaining of some cough and chest congestion and some chills and feeling feverishness. Symptoms started to ask days ago and the patient has progressed since. The patient has no prior history of COVID 19 vaccination. In the emergency, she was complaining of some mild shortness of breath. She also was feeling dizzy. Further testing showed a fever of 103.5. She was hypoxic with pulse ox was under 90%. Her white count was at 3.5 with a platelet count of 155, creatinine was normal at 1.06. Normal coagulation profile. Mild transaminitis with an AST of 56, LDH was a 37, CRP was 17.1, glucose was 194, rest of the electrodes were all within normal limits. Lactic acid level was at 1.0 and the COVID 19 testing was negative. The patient's chest x-ray showed bilateral pulmonary infiltrates consistent with pneumonia and the patient was s tarted on Decadron. The patient is currently on oxygen at 2 L per minute. The pro calcitonin level is at 0.25. D-dimer has not been checked yet. On 09/08/2021 patient seen in follow-up on medical surgical floor, today is day 2 of Remdesivir treatment, patient also remains on Decadron 6 mg daily, in addition to prophylactic Lovenox 40 mg daily. She is sitting up in her chair, she states she is feeling better, denies any acute distress, she remains on 3 L of oxygen pulse ox of 92%, no fever or chills. Her chest x-ray on admission showed mild peripheral pulmonary infiltrates at the lung bases, normal heart. Today's labs have been reviewed, CBC is relatively unremarkable, electrolytes and renal profile were unremarkable On 09/09/2021 patient seen in follow-up on medical surgical floor. She is currently on 3 L of oxygen, her pulse ox is 89%, she still coughing, but overall she feels better, she is ambulating in the room, she is trying to stay active, today is day 3 of Remdesivir. Decadron 6 mg daily, and prophylactic dose of Lovenox 40 mg daily, in addition she is also on COVID-19 vitamins. No new labs today. Follow-up chest x-ray was questionable bilateral multifocal and co nfluent opacities in the periphery of the lungs consistent with COVID-19 infection progression. No fever or chills, vital signs have been stable overnight. On 09/10/2021 patient seen in follow-up on medical surgical floor. She is currently on day 4 of Remdesivir treatment, she remains on 3 L of oxygen her pulse ox is 92%, she's been afebrile, although she states she is feeling better, coughing, she's been ambulating in the room, she's had no acute events overnight, no fever or chills, lung sounds reveal coarse diffuse bilateral crackles. His d-dimer has been noted and is within normal limits at 0.44, LDH has improved and is down to 483 from 837 on admission, his CRP is still pending for today. Remains on Decadron and prophylactic dose Lovenox in addition to COVID-19 vitamins Objective - Vital Signs Vital signs: Vital Signs Temp 97.9 F 09/10/21 10:00 Pulse 75 09/10/21 10:00 Resp 18 09/10/21 10:00 BP 157/86 09/10/21 10:00 Pulse Ox 92 L 09/10/21 10:00 Intake & Output 09/09/21 09/10/21 09/10/21 18:59 06:59 18:59 Intake Total 1750 Balance 1750 Intake: Intake, IV Titration 250 Amount Remdesivir 100 mg In 250 Sodium Chloride 0.9% 250 ml @ 250 mls/hr IVPB DAILY@1500 COUNT INCLUDES THE [facility] Rx#: [id number] Oral 1500 Other: Voiding Method Toilet # Voids 5 3 - Exam GENERAL EXAM: Alert, very pleasant, 65-year-old white female, on 3 L of oxygen the pulse ox 92% comfortable in no apparent distress. HEAD: Normocephalic/atraumatic. EYES: Normal reaction of pupils, equal size. Conjunctiva pink, sclera white. NOSE: Clear with pink turbinates. THROAT: No erythema or exudates. NECK: No masses, no JVD, no thyroid enlargement, no adenopathy. CHEST: No chest wall deformity. Symmetrical expansion. LUNGS: Equal air entry with mild bibasilar crackles CVS: Regular rate and rhythm, normal S1 and S2, no gallops, no murmurs, no rubs ABDOMEN: Soft, nontender. No hepatosplenomegaly, normal bowel sounds, no guarding or rigidity. EXTREMITIES: No clubbing, no edema, no cyanosis, 2+ pulses and upper and lower extremities. MUSCULOSKELETAL: Muscle strength and tone normal. SPINE: No scoliosis or deformity SKIN: No rashes CENTRAL NERVOUS SYSTEM: Alert and oriented -3. No focal deficits, tone is normal in all 4 extremities. PSYCHIATRIC: Alert and oriented -3. Appropriate affect. Intact judgment and insight. - Labs CBC & Chem 7: 09/08/21 08:02 09/08/21 08:02 Labs: Abnormal Lab Results - Last 24 Hours (Table) 09/09/21 09/09/21 09/10/21 Range/Units 16:28 20:51 06:10 POC Glucose (mg/dL) 234 H 272 H (75-99) mg/dL Lactate Dehydrogenase 483 H (120-246) U/L 09/10/21 09/10/21 Range/Units 07:03 11:50 POC Glucose (mg/dL) 192 H 294 H (75-99) mg/dL Lactate Dehydrogenase (120-246) U/L Assessment and Plan Plan: Assessment: #1. Acute COVID-19 pneumonia, patient came into the emergency department within 5 days of symptom onset in her symptoms including fever, cough, and shortness of breath. She was also hypoxic on presentation and requiring supplemental oxygen, she was not vaccinated, her is also infected. Patient was started on Remdesivir on 09/07/2021 #2. Acute hypoxic respiratory failure related to the above #3. Diabetes mellitus type 2 #4. Hypertension Plan: Continue Remdesivir, and today's day 4 of treatment Continue Decadron 6 mg daily Continue prophylactic Lovenox Continue COVID 19 vitamins Inflammatory markers are improving No worsening dyspnea or hypoxia Wean FiO2 to maintain O2 saturations at or above 90% Provide incentive spirometer, encouraged patient to use it We'll continue to follow her clinical course May consider discharge home in the next 24 hours, after completion of Remdesivir if remains stable I performed a history & physical examination of the patient and discussed their management with my nurse practitioner, Edna Flores. I reviewed the nurse practitioner's note and agree with the documented findings and plan of care. Lung sounds are positive for bibasilar crackles throughout the lung villalba. The findings and the impression was discussed with the patient. I attest to the documentation by the nurse practitioner. Time with Patient: Less than 30
[2021-09-10 13:10] LABS: C Reactive Protein 3.4 mg/dL (0.00-0.80)
--- NOTE | 2021-09-10 13:41 | P.PN ---
Subjective Progress Note Date: 09/10/21 Principal diagnosis: Patient feels better shortness of breath improved Constitutional: No acute distress, conversant, pleasant Eyes: Anicteric sclerae, moist conjunctiva, no lid-lag PERRLA ENMT: NC/AT Oropharynx clear, no erythema, exudates Neck: Supple, FROM, no masses, or JVD No carotid bruits No thyromegaly Lungs: no accessory muscle use Cardiovascular: Abdominal: Skin: Normal temperature, tone, texture, turgor No induration No subcutaneous nodules No rash, lesions No ulcers Extremities: No digital cyanosis No clubbing Pedal pulses intact and symmetrical Radial pulses intact and symmetrical Normal gait and station No calf tenderness Psychiatric:Alert and oriented to person, place and time Appropriate affect Intact judgement Neuro: This is a 65-year-old female with past medical history noted below Presented to the emergency room with worsening shortness of breath and cough. She was evaluated and admitted to the hospital for further management of her medical problems noted below. 1. COVID-19 pneumonia with acute hypoxic respiratory failure: seen and ev aluated by pulmonary. Started on Decadron and Remdesivir day #2. Continue vitamin C, vitamin D, and zinc supplements. 2. Type 2 diabetes, hold oral agents and continue sliding scale insulin 3. Mild acute kidney injury 4. Chronic medical problems: Essential hypertension, hyperlipidemia. Continue home medications 5. DVT prophylaxis with subcu Lovenox 6. CODE STATUS, patient is DO NOT RESUSCITATE/DO NOT INTUBATE. Discussed with her in detail is today at bedside Today, I reviewed her medication list and lab work results. Continue current regimen. Patient continued to be hypoxic we'll continue to wean hopefully discharge in 2- 3 day Objective - Vital Signs Vital signs: Vital Signs Temp 97.9 F 09/10/21 10:00 Pulse 75 09/10/21 10:00 Resp 18 09/10/21 10:00 BP 157/86 09/10/21 10:00 Pulse Ox 92 L 09/10/21 10:00 Intake & Output 09/09/21 09/10/21 09/10/21 18:59 06:59 18:59 Intake Total 1750 Balance 1750 Intake: Intake, IV Titration 250 Amount Remdesivir 100 mg In 250 Sodium Chloride 0.9% 250 ml @ 250 mls/hr IVPB DAILY@1500 [facility] Rx#: [id number] Oral 1500 Other: Voiding Method Toilet # Voids 5 3 - Labs CBC & Chem 7: 09/08/21 08:02 09/08/21 08:02 Labs: Abnormal Lab Results - Last 24 Hours (Table) 09/09/21 09/09/21 09/10/21 Range/Units 16:28 20:51 06:10 POC Glucose (mg/dL) 234 H 272 H (75-99) mg/dL Lactate Dehydrogenase 483 H (120-246) U/L C-Reactive Protein 3.40 H (0.00-0.80) mg/dL 09/10/21 09/10/21 Range/Units 07:03 11:50 POC Glucose (mg/dL) 192 H 294 H (75-99) mg/dL Lactate Dehydrogenase (120-246) U/L C-Reactive Protein (0.00-0.80) mg/dL
[2021-09-10] MEDS: REMDESIVIR 100 MG in SODIUM CHLORIDE 0.9% 250 ML IVPB SCH (15:30)
[2021-09-10 16:35] LABS: Glucose,Whole Blood 256 mg/dL (75-99)
[2021-09-10 20:12] LABS: Glucose,Whole Blood 321 mg/dL (75-99)
[2021-09-10] MEDS: INSULIN DETEMIR (LEVEMIR) 100 UNIT/ML SYR SQ SCH (20:32)
[2021-09-11 07:06] LABS: Glucose,Whole Blood 167 mg/dL (75-99)
[2021-09-11] MEDS: DEXAMETHASONE SOD PHOSPHATE 10 MG/ML 1 ML VIAL IVP SCH (09:00)
[2021-09-11] MEDS: ASCORBIC ACID 500 MG TAB PO SCH (09:00)
[2021-09-11] MEDS: ZINC SULFATE 220 MG CAP PO SCH (09:00)
[2021-09-11] MEDS: ENOXAPARIN 40 MG/0.4 ML SYRINGE SQ SCH (09:00)
[2021-09-11] MEDS: LOSARTAN 50 MG TAB PO SCH (09:00)
[2021-09-11] MEDS: CHOLECALCIFEROL 25 MCG (1000 IU) TABLET PO SCH (09:00)
[2021-09-11] MEDS: INSULIN ASPART (NovoLOG) 100 UNIT/ML VIAL SQ SCH ×4 (09:01→20:25)
--- NOTE | 2021-09-11 10:35 | P.PN ---
Subjective Progress Note Date: 09/11/21 Principal diagnosis: Patient feels better shortness of breath improved Constitutional: No acute distress, conversant, pleasant Eyes: Anicteric sclerae, moist conjunctiva, no lid-lag PERRLA ENMT: NC/AT Oropharynx clear, no erythema, exudates Neck: Supple, FROM, no masses, or JVD No carotid bruits No thyromegaly Lungs: no accessory muscle use Cardiovascular: Abdominal: Skin: Normal temperature, tone, texture, turgor No induration No subcutaneous nodules No rash, lesions No ulcers Extremities: No digital cyanosis No clubbing Pedal pulses intact and symmetrical Radial pulses intact and symmetrical Normal gait and station No calf tenderness Psychiatric:Alert and oriented to person, place and time Appropriate affect Intact judgement Neuro: This is a 65-year-old female with past medical history noted below Presented to the emergency room with worsening shortness of breath and cough. She was evaluated and admitted to the hospital for further management of her medical problems noted below. 1. COVID-19 pneumonia with acute hypoxic respiratory failure: seen and ev aluated by pulmonary. Started on Decadron and Remdesivir day #2. Continue vitamin C, vitamin D, and zinc supplements. 2. Type 2 diabetes, hold oral agents and continue sliding scale insulin 3. Mild acute kidney injury 4. Chronic medical problems: Essential hypertension, hyperlipidemia. Continue home medications 5. DVT prophylaxis with subcu Lovenox 6. CODE STATUS, patient is DO NOT RESUSCITATE/DO NOT INTUBATE. Discussed with her in detail is today at bedside Overall improving we'll continue to wean oxygen hopefully discharge in a day or 2 Objective - Vital Signs Vital signs: Vital Signs Temp 97.8 F 09/11/21 10:14 Pulse 60 09/11/21 10:14 Resp 18 09/11/21 10:14 BP 160/93 09/11/21 10:14 Pulse Ox 93 L 09/11/21 10:14 Intake & Output 09/10/21 09/11/21 09/11/21 18:59 06:59 18:59 Other: Voiding Method Toilet # Voids 3 3 - Labs CBC & Chem 7: 09/08/21 08:02 09/08/21 08:02 Labs: Abnormal Lab Results - Last 24 Hours (Table) 09/10/21 09/10/21 09/10/21 Range/Units 06:10 11:50 16:32 POC Glucose (mg/dL) 294 H 256 H (75-99) mg/dL C-Reactive Protein 3.40 H (0.00-0.80) mg/dL 09/10/21 09/11/21 Range/Units 20:08 07:05 POC Glucose (mg/dL) 321 H 167 H (75-99) mg/dL C-Reactive Protein (0.00-0.80) mg/dL
[2021-09-11 11:50] LABS: Glucose,Whole Blood 186 mg/dL (75-99)
[2021-09-11 12:14] LABS: Basophils % (A) 0 %; Eosinophils % (A) 0 %; HCT 38.1 % (34.0-46.0); HGB 12.9 gm/dL (11.4-16.0); Lymphocytes # (A) 0.6 k/uL (1.0-4.8); Lymphocytes % (A) 8 %; MCH 29.4 pg (25.0-35.0); MCHC 33.9 g/dL (31.0-37.0); MCV 86.7 fL (80.0-100.0); Mean Platelet Volume 7.4; Monocytes # (A) 0.6 k/uL (0-1.0); Monocytes % (A) 7 %; Neutrophils # (A) 6.3 k/uL (1.3-7.7); Neutrophils % (A) 81 %; Platelet Count 266 k/uL (150-450); RBC 4.39 m/uL (3.80-5.40); RDW 12.4 % (11.5-15.5); WBC 7.8 k/uL (3.8-10.6)
[2021-09-11 12:25] LABS: Anion Gap 4 mmol/L; Carbon Dioxide 31 mmol/L (22-30); Chloride 104 mmol/L (98-107); Glucose 174 mg/dL (74-99); Potassium 4.4 mmol/L (3.5-5.1); Sodium 139 mmol/L (137-145)
[2021-09-11 12:26] LABS: ALT 27 U/L (4-34); AST 40 U/L (14-36); African American GFR (CKD) >90 (>60 ml/min/1.73 sqM); Albumin 3.1 g/dL (3.5-5.0); Albumin/Globulin Ratio 1.2; Alkaline Phosphatase 57 U/L (38-126); Blood Urea Nitrogen 25 mg/dL (7-17); Calcium 8.9 mg/dL (8.4-10.2); Globulin 2.6 g/dL; Non-African American GFR(CKD) >90 (>60 ml/min/1.73 sqM); Total Bilirubin 0.4 mg/dL (0.2-1.3); Total Protein 5.7 g/dL (6.3-8.2)
--- NOTE | 2021-09-11 13:35 | P.PN ---
Subjective Progress Note Date: 09/11/21 Principal diagnosis: Hypoxia, COVID-19 pneumonia This is a 65-year-old female patient who came into the emergency department after complaining of some cough and chest congestion and some chills and feeling feverishness. Symptoms started to ask days ago and the patient has progressed since. The patient has no prior history of COVID 19 vaccination. In the emergency, she was complaining of some mild shortness of breath. She also was feeling dizzy. Further testing showed a fever of 103.5. She was hypoxic with pulse ox was under 90%. Her white count was at 3.5 with a platelet count of 155, creatinine was normal at 1.06. Normal coagulation profile. Mild transaminitis with an AST of 56, LDH was a 37, CRP was 17.1, glucose was 194, rest of the electrodes were all within normal limits. Lactic acid level was at 1.0 and the COVID 19 testing was negative. The patient's chest x-ray showed bilateral pulmonary infiltrates consistent with pneumonia and the patient was s tarted on Decadron. The patient is currently on oxygen at 2 L per minute. The pro calcitonin level is at 0.25. D-dimer has not been checked yet. On 09/08/2021 patient seen in follow-up on medical surgical floor, today is day 2 of Remdesivir treatment, patient also remains on Decadron 6 mg daily, in addition to prophylactic Lovenox 40 mg daily. She is sitting up in her chair, she states she is feeling better, denies any acute distress, she remains on 3 L of oxygen pulse ox of 92%, no fever or chills. Her chest x-ray on admission showed mild peripheral pulmonary infiltrates at the lung bases, normal heart. Today's labs have been reviewed, CBC is relatively unremarkable, electrolytes and renal profile were unremarkable On 09/09/2021 patient seen in follow-up on medical surgical floor. She is currently on 3 L of oxygen, her pulse ox is 89%, she still coughing, but overall she feels better, she is ambulating in the room, she is trying to stay active, today is day 3 of Remdesivir. Decadron 6 mg daily, and prophylactic dose of Lovenox 40 mg daily, in addition she is also on COVID-19 vitamins. No new labs today. Follow-up chest x-ray was questionable bilateral multifocal and co nfluent opacities in the periphery of the lungs consistent with COVID-19 infection progression. No fever or chills, vital signs have been stable overnight. On 09/10/2021 patient seen in follow-up on medical surgical floor. She is currently on day 4 of Remdesivir treatment, she remains on 3 L of oxygen her pulse ox is 92%, she's been afebrile, although she states she is feeling better, coughing, she's been ambulating in the room, she's had no acute events overnight, no fever or chills, lung sounds reveal coarse diffuse bilateral crackles. His d-dimer has been noted and is within normal limits at 0.44, LDH has improved and is down to 483 from 837 on admission, his CRP is still pending for today. Remains on Decadron and prophylactic dose Lovenox in addition to COVID-19 vitamins On 09/11/2021 patient seen in follow-up on medical surgical floor. Today is day 5 of her Remdesivir treatment, she continues on Decadron, prophylactic Lovenox and COVID-19 vitamins, clinically she is feeling better, she is breathing easier, she is currently on 3 L of oxygen her pulse ox is 89-94%, still coughing some, but overall improving, his labs have been reviewed, white blood cell count is 7.8, hemoglobin is 12.9, lymphocyte count is 0.6, sodium is 139, potassium is 4.4, chloride is 104, CO2 is 31, BUN is 25 creatinine 0.69 Objective - Vital Signs Vital signs: Vital Signs Temp 97.8 F 09/11/21 10:14 Pulse 60 09/11/21 10:14 Resp 18 09/11/21 10:14 BP 160/93 09/11/21 10:14 Pulse Ox 93 L 09/11/21 10:14 Intake & Output 09/10/21 09/11/21 09/11/21 18:59 06:59 18:59 Other: Voiding Method Toilet # Voids 3 3 - Exam GENERAL EXAM: Alert, very pleasant, 65-year-old white female, on 3 L of oxygen the pulse ox 92% comfortable in no apparent distress. HEAD: Normocephalic/atraumatic. EYES: Normal reaction of pupils, equal size. Conjunctiva pink, sclera white. NOSE: Clear with pink turbinates. THROAT: No erythema or exudates. NECK: No masses, no JVD, no thyroid enlargement, no adenopathy. CHEST: No chest wall deformity. Symmetrical expansion. LUNGS: Equal air entry with mild bibasilar crackles CVS: Regular rate and rhythm, normal S1 and S2, no gallops, no murmurs, no rubs ABDOMEN: Soft, nontender. No hepatosplenomegaly, normal bowel sounds, no guarding or rigidity. EXTREMITIES: No clubbing, no edema, no cyanosis, 2+ pulses and upper and lower extremities. MUSCULOSKELETAL: Muscle strength and tone normal. SPINE: No scoliosis or deformity SKIN: No rashes CENTRAL NERVOUS SYSTEM: Alert and oriented -3. No focal deficits, tone is normal in all 4 extremities. PSYCHIATRIC: Alert and oriented -3. Appropriate affect. Intact judgment and insight. - Labs CBC & Chem 7: 09/11/21 11:48 09/11/21 11:48 Labs: Abnormal Lab Results - Last 24 Hours (Table) 09/10/21 09/10/21 09/11/21 Range/Units 16:32 20:08 07:05 Lymphocytes # (1.0-4.8) k/uL Carbon Dioxide (22-30) mmol/L BUN (7-17) mg/dL Glucose (74-99) mg/dL POC Glucose (mg/dL) 256 H 321 H 167 H (75-99) mg/dL AST (14-36) U/L Total Protein (6.3-8.2) g/dL Albumin (3.5-5.0) g/dL 09/11/21 09/11/21 09/11/21 Range/Units 11:48 11:48 11:49 Lymphocytes # 0.6 L (1.0-4.8) k/uL Carbon Dioxide 31 H (22-30) mmol/L BUN 25 H (7-17) mg/dL Glucose 174 H (74-99) mg/dL POC Glucose (mg/dL) 186 H (75-99) mg/dL AST 40 H (14-36) U/L Total Protein 5.7 L (6.3-8.2) g/dL Albumin 3.1 L (3.5-5.0) g/dL Assessment and Plan Plan: Assessment: #1. Acute COVID-19 pneumonia, patient came into the emergency department within 5 days of symptom onset in her symptoms including fever, cough, and shortness of breath. She was also hypoxic on presentation and requiring supplemental oxygen, she was not vaccinated, her is also infected. Patient was started on Remdesivir on 09/07/2021 #2. Acute hypoxic respiratory failure related to the above #3. Diabetes mellitus type 2 #4. Hypertension Plan: Patient is completing her course of Remdesivir today Continue Decadron 6 mg daily Continue prophylactic Lovenox Continue COVID 19 vitamins Clinically she continues to improve No worsening dyspnea or hypoxia Wean FiO2 to maintain O2 saturations at or above 90% Patient has remained stable from pulmonary perspective, overall improving We'll try to wean her off the oxygen today She can be considered for discharge home when cleared by medicine Outpatient follow-up with Dr. Ritchie in the office in 2 weeks Patient can finish outpatient course of Decadron for a total of 10 days and she can continue on vitamin D, C and zinc I performed a history & physical examination of the patient and discussed their management with my nurse practitioner, Edna Flores. I reviewed the nurse practitioner's note and agree with the documented findings and plan of care. Lung sounds are positive for bibasilar crackles throughout the lung villalba. The findings and the impression was discussed with the patient. I attest to the documentation by the nurse practitioner. Time with Patient: Less than 30
[2021-09-11 15:01] VITALS: BMI 28.1
[2021-09-11] MEDS: ATORVASTATIN 10 MG TAB PO SCH (15:16)
[2021-09-11] MEDS: REMDESIVIR 100 MG in SODIUM CHLORIDE 0.9% 250 ML IVPB SCH (15:19)
[2021-09-11 17:06] LABS: Glucose,Whole Blood 284 mg/dL (75-99)
[2021-09-11 20:14] LABS: Glucose,Whole Blood 301 mg/dL (75-99)
[2021-09-11] MEDS: amLODIPine 5 MG TAB PO SCH (20:25)
[2021-09-11] MEDS: INSULIN DETEMIR (LEVEMIR) 100 UNIT/ML SYR SQ SCH (20:25)
[2021-09-12 07:07] LABS: Glucose,Whole Blood 131 mg/dL (75-99)
[2021-09-12] MEDS: DEXAMETHASONE SOD PHOSPHATE 10 MG/ML 1 ML VIAL IVP SCH (08:08)
[2021-09-12] MEDS: INSULIN ASPART (NovoLOG) 100 UNIT/ML VIAL SQ SCH ×2 (08:09→11:54)
[2021-09-12] MEDS: ASCORBIC ACID 500 MG TAB PO SCH (08:10)
[2021-09-12] MEDS: LOSARTAN 50 MG TAB PO SCH (08:10)
[2021-09-12] MEDS: amLODIPine 5 MG TAB PO SCH (08:10)
[2021-09-12] MEDS: CHOLECALCIFEROL 25 MCG (1000 IU) TABLET PO SCH (08:10)
[2021-09-12] MEDS: ZINC SULFATE 220 MG CAP PO SCH (08:10)
[2021-09-12] MEDS: ENOXAPARIN 40 MG/0.4 ML SYRINGE SQ SCH (08:10)
[2021-09-12] MEDS ORDERED: AZITHROMYCIN 500 MG in SODIUM CHLORIDE 0.9% 250 ML IVPB ONE (11:00)
[2021-09-12 11:43] LABS: Glucose,Whole Blood 183 mg/dL (75-99)
--- NOTE | 2021-09-12 11:50 | P.PN ---
Subjective Progress Note Date: 09/12/21 Principal diagnosis: Hypoxia, COVID-19 pneumonia This is a 65-year-old female patient who came into the emergency department after complaining of some cough and chest congestion and some chills and feeling feverishness. Symptoms started to ask days ago and the patient has progressed since. The patient has no prior history of COVID 19 vaccination. In the emergency, she was complaining of some mild shortness of breath. She also was feeling dizzy. Further testing showed a fever of 103.5. She was hypoxic with pulse ox was under 90%. Her white count was at 3.5 with a platelet count of 155, creatinine was normal at 1.06. Normal coagulation profile. Mild transaminitis with an AST of 56, LDH was a 37, CRP was 17.1, glucose was 194, rest of the electrodes were all within normal limits. Lactic acid level was at 1.0 and the COVID 19 testing was negative. The patient's chest x-ray showed bilateral pulmonary infiltrates consistent with pneumonia and the patient was s tarted on Decadron. The patient is currently on oxygen at 2 L per minute. The pro calcitonin level is at 0.25. D-dimer has not been checked yet. On 09/08/2021 patient seen in follow-up on medical surgical floor, today is day 2 of Remdesivir treatment, patient also remains on Decadron 6 mg daily, in addition to prophylactic Lovenox 40 mg daily. She is sitting up in her chair, she states she is feeling better, denies any acute distress, she remains on 3 L of oxygen pulse ox of 92%, no fever or chills. Her chest x-ray on admission showed mild peripheral pulmonary infiltrates at the lung bases, normal heart. Today's labs have been reviewed, CBC is relatively unremarkable, electrolytes and renal profile were unremarkable On 09/09/2021 patient seen in follow-up on medical surgical floor. She is currently on 3 L of oxygen, her pulse ox is 89%, she still coughing, but overall she feels better, she is ambulating in the room, she is trying to stay active, today is day 3 of Remdesivir. Decadron 6 mg daily, and prophylactic dose of Lovenox 40 mg daily, in addition she is also on COVID-19 vitamins. No new labs today. Follow-up chest x-ray was questionable bilateral multifocal and co nfluent opacities in the periphery of the lungs consistent with COVID-19 infection progression. No fever or chills, vital signs have been stable overnight. On 09/10/2021 patient seen in follow-up on medical surgical floor. She is currently on day 4 of Remdesivir treatment, she remains on 3 L of oxygen her pulse ox is 92%, she's been afebrile, although she states she is feeling better, coughing, she's been ambulating in the room, she's had no acute events overnight, no fever or chills, lung sounds reveal coarse diffuse bilateral crackles. His d-dimer has been noted and is within normal limits at 0.44, LDH has improved and is down to 483 from 837 on admission, his CRP is still pending for today. Remains on Decadron and prophylactic dose Lovenox in addition to COVID-19 vitamins On 09/11/2021 patient seen in follow-up on medical surgical floor. Today is day 5 of her Remdesivir treatment, she continues on Decadron, prophylactic Lovenox and COVID-19 vitamins, clinically she is feeling better, she is breathing easier, she is currently on 3 L of oxygen her pulse ox is 89-94%, still coughing some, but overall improving, his labs have been reviewed, white blood cell count is 7.8, hemoglobin is 12.9, lymphocyte count is 0.6, sodium is 139, potassium is 4.4, chloride is 104, CO2 is 31, BUN is 25 creatinine 0.69 On 09/12/2021 patient seen in follow-up on medical surgical floor. She completed a course of Remdesivir yesterday, still has dry cough, no chest pain, vital signs have been stable, she still requiring 3 L of oxygen her pulse ox is 89-90%, no worsening dyspnea, she's been able to tolerate ambulation in the room, she's been ambulating to the bathroom, she's had no acute events overnight, afebrile, blood pressure is been stable. Remains on Decadron 6 mg daily, she is on subcu Lovenox 40 mg daily. No nausea vomiting or diarrhea, lung sounds reveal bibasilar crackles, no wheezing, no rhonchi. Objective - Vital Signs Vital signs: Vital Signs Temp 98.2 F 09/12/21 10:26 Pulse 71 09/12/21 10:26 Resp 16 09/12/21 10:26 BP 158/81 09/12/21 10:26 Pulse Ox 89 L 09/12/21 10:26 Intake & Output 09/11/21 09/12/21 09/12/21 18:59 06:59 18:59 Weight 81.647 kg Other: Voiding Method Toilet # Voids 1 3 - Exam GENERAL EXAM: Alert, very pleasant, 65-year-old white female, on 3 L of oxygen the pulse ox 89-90% comfortable in no apparent distress. HEAD: Normocephalic/atraumatic. EYES: Normal reaction of pupils, equal size. Conjunctiva pink, sclera white. NOSE: Clear with pink turbinates. THROAT: No erythema or exudates. NECK: No masses, no JVD, no thyroid enlargement, no adenopathy. CHEST: No chest wall deformity. Symmetrical expansion. LUNGS: Equal air entry with mild bibasilar crackles CVS: Regular rate and rhythm, normal S1 and S2, no gallops, no murmurs, no rubs ABDOMEN: Soft, nontender. No hepatosplenomegaly, normal bowel sounds, no guarding or rigidity. EXTREMITIES: No clubbing, no edema, no cyanosis, 2+ pulses and upper and lower extremities. MUSCULOSKELETAL: Muscle strength and tone normal. SPINE: No scoliosis or deformity SKIN: No rashes CENTRAL NERVOUS SYSTEM: Alert and oriented -3. No focal deficits, tone is normal in all 4 extremities. PSYCHIATRIC: Alert and oriented -3. Appropriate affect. Intact judgment and insight. - Labs CBC & Chem 7: 09/11/21 11:48 09/11/21 11:48 Labs: Abnormal Lab Results - Last 24 Hours (Table) 09/11/21 09/11/21 09/11/21 Range/Units 11:48 11:48 11:49 Lymphocytes # 0.6 L (1.0-4.8) k/uL Carbon Dioxide 31 H (22-30) mmol/L BUN 25 H (7-17) mg/dL Glucose 174 H (74-99) mg/dL POC Glucose (mg/dL) 186 H (75-99) mg/dL AST 40 H (14-36) U/L Total Protein 5.7 L (6.3-8.2) g/dL Albumin 3.1 L (3.5-5.0) g/dL 09/11/21 09/11/21 09/12/21 Range/Units 16:46 20:09 07:04 Lymphocytes # (1.0-4.8) k/uL Carbon Dioxide (22-30) mmol/L BUN (7-17) mg/dL Glucose (74-99) mg/dL POC Glucose (mg/dL) 284 H 301 H 131 H (75-99) mg/dL AST (14-36) U/L Total Protein (6.3-8.2) g/dL Albumin (3.5-5.0) g/dL 09/12/21 Range/Units 11:33 Lymphocytes # (1.0-4.8) k/uL Carbon Dioxide (22-30) mmol/L BUN (7-17) mg/dL Glucose (74-99) mg/dL POC Glucose (mg/dL) 183 H (75-99) mg/dL AST (14-36) U/L Total Protein (6.3-8.2) g/dL Albumin (3.5-5.0) g/dL Assessment and Plan Plan: Assessment: #1. Acute COVID-19 pneumonia, patient came into the emergency department within 5 days of symptom onset in her symptoms including fever, cough, and shortness of breath. She was also hypoxic on presentation and requiring supplemental oxygen, she was not vaccinated, her is also infected. Patient was started on Remdesivir on 09/07/2021 #2. Acute hypoxic respiratory failure related to the above #3. Diabetes mellitus type 2 #4. Hypertension Plan: Clinically patient has remained stable No worsening dyspnea or hypoxia However patient will require home oxygen to go home with She will need 3 L/m of supplemental oxygen She can finish outpatient course of Decadron for total of 10 days Continue with vitamin C D and zinc Stable for discharge home today Outpatient follow-up with Dr. García in 2 weeks I performed a history & physical examination of the patient and discussed their management with my nurse practitioner, Edna Flores. I reviewed the nurse practitioner's note and agree with the documented findings and plan of care. Lung sounds are positive for bibasilar crackles throughout the lung villalba. The findings and the impression was discussed with the patient. I attest to the documentation by the nurse practitioner. Time with Patient: Less than 30
--- NOTE | 2021-09-12 13:28 | P.DS ---
Providers Date of admission: 09/07/21 07:49 Expected date of discharge: 09/12/21 Attending physician: Gretchen Parnell Consults: 09/07/21 07:54 Consult Physician Urgent Consulting Provider: Rebecca Patel Consult Reason/Comments: COVID-19, hypoxia Do you want consulting provider notified?: Yes Primary care physician: [facility] Course: Patient feels better shortness of breath improved Constitutional: No acute distress, conversant, pleasant Eyes: Anicteric sclerae, moist conjunctiva, no lid-lag PERRLA ENMT: NC/AT Oropharynx clear, no erythema, exudates Neck: Supple, FROM, no masses, or JVD No carotid bruits No thyromegaly Lungs: no accessory muscle use Cardiovascular: Abdominal: Skin: Normal temperature, tone, texture, turgor No induration No subcutaneous nodules No rash, lesions No ulcers Extremities: No digital cyanosis No clubbing Pedal pulses intact and symmetrical Radial pulses intact and symmetrical Normal gait and station No calf tenderness Psychiatric:Alert and oriented to person, place and time Appropriate affect Intact judgement Neuro: This is a 65-year-old female with past medical history noted below Presented to the emergency room with worsening shortness of breath and cough. She was evaluated and admitted to the hospital for further management of her medical problems noted below. 1. COVID-19 pneumonia with acute hypoxic respiratory failure: 2. Type 2 diabetes, hold oral agents and continue sliding scale insulin 3. Mild acute kidney injury 4. Chronic medical problems: Essential hypertension, hyperlipidemia. Continue home medications Patient admitted to the hospital for COVID-19 pneumonia started on IV steroids antibiotics overall the condition of the patient remained stable patient continued to be hypoxic but in no distress possible home stable patient has been cleared from pulmonology to be discharged home to follow-up with pulmonology in few days Discharge plan COVID-19 Acute hypoxic respiratory failure due to COVID-19 Patient Condition at Discharge: Fair Plan - Discharge Summary Discharge Rx Participant: No New Discharge Prescriptions: New Cefdinir [Omnicef] 300 mg PO Q12HR #14 capsule Azithromycin [Zithromax] 500 mg PO DAILY 1 Days #7 tab Dexamethasone [Decadron] 6 mg PO DAILY #7 tablet Continue metFORMIN HCL [Glucophage XR] 1,500 mg PO W/SUPPER Cholecalciferol [Vitamin D3 (25 Mcg = 1000 Iu)] 50 mcg PO DAILY glipiZIDE [Glucotrol XL] 2.5 mg PO BID Atorvastatin Calcium [Lipitor] 5 mg PO Q48H Losartan Potassium 100 mg PO DAILY Ubidecarenone [Co Q-10] 100 mg PO DAILY Discharge Medication List Atorvastatin Calcium [Lipitor] 5 mg PO Q48H 09/07/21 [History] Cholecalciferol [Vitamin D3 (25 Mcg = 1000 Iu)] 50 mcg PO DAILY 09/07/21 [History] Losartan Potassium 100 mg PO DAILY 09/07/21 [History] Ubidecarenone [Co Q-10] 100 mg PO DAILY 09/07/21 [History] glipiZIDE [Glucotrol XL] 2.5 mg PO BID 09/07/21 [History] metFORMIN HCL [Glucophage XR] 1,500 mg PO W/SUPPER 09/07/21 [History] Azithromycin [Zithromax] 500 mg PO DAILY 1 Days #7 tab 09/12/21 [Rx] Cefdinir [Omnicef] 300 mg PO Q12HR #14 capsule 09/12/21 [Rx] Dexamethasone [Decadron] 6 mg PO DAILY #7 tablet 09/12/21 [Rx] Follow up Appointment(s)/Referral(s): Steven García MD [STAFF PHYSICIAN] - 10/09/21 1:15 pm [place] [NON-STAFF] - As Needed (oxygen) Nael Conner [Primary Care Provider] - 1-2 days (Office closed at time of discharge. Please call Wednesday to schedule appointment ) Patient Instructions/Handouts: Coronavirus Disease 2019 (COVID-19), Using Oxygen at Home (DC) Discharge Disposition: HOME SELF-CARE
[2021-09-12 14:07] VITALS: BP 146/76; PULSE 89; RESP 18; TEMP 97.7
== END 2021-09-12 15:32 | disposition home or self-care (01) | DRG 177 ==
LOC: EC 05:12 → 4SSUR 07:49
PROVIDERS: ADMIT Internal Medicine; ATTEND Internal Medicine
PROC: XW033G6 Introduction of REGN-COV2 Monoclonal Antibody into Peripheral Vein, Percutaneous Approach, New Technology Group 6 (ICD-10-PCS; principal; 2021-09-07)
PROC: XW043E5 Introduction of Remdesivir Anti-infective into Central Vein, Percutaneous Approach, New Technology Group 5 (ICD-10-PCS; 2021-09-07)
PROC: 3E0333Z Introduction of Anti-inflammatory into Peripheral Vein, Percutaneous Approach (ICD-10-PCS; 2021-09-08)
DX: U07.1 COVID-19 (principal); J12.82 Pneumonia due to coronavirus disease 2019; J96.01 Acute respiratory failure with hypoxia; N17.9 Acute kidney failure, unspecified; E11.9 Type 2 diabetes mellitus without complications; E78.5 Hyperlipidemia, unspecified; I10 Essential (primary) hypertension; Z66 Do not resuscitate; Z79.84 Long term (current) use of oral hypoglycemic drugs; Z87.891 Personal history of nicotine dependence
CPT/HCPCS: 36415; 71045; 80048; 80053; 82728; 83605; 83615; 83735; 84145; 85025; 85379; 85610; 85730; 86140; 87635; 93005; 94640; 94760; 96361; 96374; 96375; 99285

== ENCOUNTER 2021-10-01 16:36 | Emergency (ER) | payer OTHER ==
[2021-10-01 17:11] VITALS: TEMP 99.2
--- NOTE | 2021-10-01 18:25 | ED ---
General Adult HPI - General Chief complaint: Chest Pain Stated complaint: SOB Time Seen by Provider: 10/01/21 17:35 Source: patient, RN notes reviewed, old records reviewed Mode of arrival: wheelchair Limitations: no limitations - History of Present Illness Initial comments: 65-year-old female presenting with dyspnea, rule out pulmonary embolism. Jimmy pabon had coronavirus last month. She had been on supplemental oxygen after discharge. She had some improvement however over the past several days she has had worsening dyspnea. No continued fevers. She is also had some lower chest discomfort. She reports bilateral lower extremity swelling. She was sent in by her primary care physician to rule out pulmonary embolism. - Related Data Home Medications Medication Instructions Recorded Confirmed Atorvastatin Calcium [Lipitor] 5 mg PO Q48H 09/07/21 09/07/21 Cholecalciferol [Vitamin D3 (25 50 mcg PO DAILY 09/07/21 09/07/21 Mcg = 1000 Iu)] Losartan Potassium 100 mg PO DAILY 09/07/21 09/07/21 Ubidecarenone [Co Q-10] 100 mg PO DAILY 09/07/21 09/07/21 glipiZIDE [Glucotrol XL] 2.5 mg PO BID 09/07/21 09/07/21 metFORMIN HCL [Glucophage XR] 1,500 mg PO W/SUPPER 09/07/21 09/07/21 Previous Rx's Medication Instructions Recorded Azithromycin [Zithromax] 500 mg PO DAILY 1 Days #7 tab 09/12/21 Cefdinir [Omnicef] 300 mg PO Q12HR #14 capsule 09/12/21 Dexamethasone [Decadron] 6 mg PO DAILY #7 tablet 09/12/21 Allergies Allergy/AdvReac Type Severity Reaction Status Date / Time No Known Allergies Allergy Verified 10/01/21 17:07 Review of Systems ROS Statement: Those systems with pertinent positive or pertinent negative responses have been documented in the HPI. ROS Other: All systems not noted in ROS Statement are negative. Past Medical History Past Medical History: Diabetes Mellitus, Hypertension History of Any Multi-Drug Resistant Organisms: None Reported Past Surgical History: Adenoidectomy, Appendectomy, Tonsillectomy Past Psychological History: No Psychological Hx Reported Smoking Status: Former smoker Past Alcohol Use History: None Reported Past Drug Use History: None Reported General Exam Limitations: no limitations General appearance: alert, in no apparent distress Head exam: Present: atraumatic, normocephalic Eye exam: Present: normal appearance, PERRL ENT exam: Present: normal exam, normal oropharynx Neck exam: Present: normal inspection Respiratory exam: Present: rales. Absent: respiratory distress Cardiovascular Exam: Present: regular rate, normal rhythm GI/Abdominal exam: Present: soft. Absent: distended, tenderness, guarding Extremities exam: Present: normal capillary refill, pedal edema. Absent: calf tenderness Neurological exam: Present: alert, oriented X3, CN II-XII intact. Absent: motor sensory deficit Psychiatric exam: Present: normal affect, normal mood Skin exam: Present: warm, dry, intact. Absent: cyanosis, diaphoretic Course Vital Signs 10/01/21 10/01/21 17:08 20:02 Temperature 99.2 F Pulse Rate 105 H 89 Respiratory 20 24 Rate Blood Pressure 173/88 167/82 O2 Sat by Pulse 95 94 L Oximetry EKG Findings - EKG Comments: EKG Findings:: EKG: Normal sinus rhythm, rate of 86, [place] interval 142, QRS duration 82, QTC 428, no ST segment elevation. Medical Decision Making - Medical Decision Making 62-year-old female with dyspnea following coronavirus infection. Patient is approximately one month status post the onset of her infection. She was sent in to rule out pulmonary embolism, CT is performed which is negative for pulmonary embolism but shows extensive bilateral pneumonia and pleural thickening consistent with previous coronavirus infection. She has a normal CBC, normal CMP, negative troponin, negative BNP. I did discuss case with Dr. García was covering for pulmonology who will follow this patient on an outpatient basis. She's given return parameters. - Lab Data Result diagrams: 10/01/21 18:19 10/01/21 18:19 Lab Results 10/01/21 10/01/21 10/01/21 Range/Units 18:19 18:19 18:19 WBC 7.4 (3.8-10.6) k/uL RBC 4.06 (3.80-5.40) m/uL Hgb 11.6 (11.4-16.0) gm/dL Hct 35.7 (34.0-46.0) % MCV 88.1 (80.0-100.0) fL MCH 28.6 (25.0-35.0) pg MCHC 32.5 (31.0-37.0) g/dL RDW 13.4 (11.5-15.5) % Plt Count 195 (150-450) k/uL MPV 8.0 Neutrophils % 64 % Lymphocytes % 22 % Monocytes % 5 % Eosinophils % 7 % Basophils % 1 % Neutrophils # 4.8 (1.3-7.7) k/uL Lymphocytes # 1.6 (1.0-4.8) k/uL Monocytes # 0.4 (0-1.0) k/uL Eosinophils # 0.5 (0-0.7) k/uL Basophils # 0.0 (0-0.2) k/uL PT 10.0 (9.0-12.0) sec INR 0.9 (<1.2) APTT 18.0 L (22.0-30.0) sec Sodium 137 (137-145) mmol/L Potassium 5.2 H (3.5-5.1) mmol/L Chloride 108 H (98-107) mmol/L Carbon Dioxide 21 L (22-30) mmol/L Anion Gap 8 mmol/L BUN 8 (7-17) mg/dL Creatinine 0.64 (0.52-1.04) mg/dL Est GFR (CKD-EPI)AfAm >90 (>60 ml/min/1.73 sqM) Est GFR (CKD-EPI)NonAf >90 (>60 ml/min/1.73 sqM) Glucose 152 H (74-99) mg/dL Calcium 8.7 (8.4-10.2) mg/dL Magnesium 1.8 (1.6-2.3) mg/dL Total Bilirubin 0.6 (0.2-1.3) mg/dL AST 31 (14-36) U/L ALT 18 (4-34) U/L Alkaline Phosphatase 100 (38-126) U/L Troponin I (0.000-0.034) ng/mL NT-Pro-B Natriuret Pep pg/mL Total Protein 6.3 (6.3-8.2) g/dL Albumin 3.3 L (3.5-5.0) g/dL 10/01/21 10/01/21 Range/Units 18:19 18:19 WBC (3.8-10.6) k/uL RBC (3.80-5.40) m/uL Hgb (11.4-16.0) gm/dL Hct (34.0-46.0) % MCV (80.0-100.0) fL MCH (25.0-35.0) pg MCHC (31.0-37.0) g/dL RDW (11.5-15.5) % Plt Count (150-450) k/uL MPV Neutrophils % % Lymphocytes % % Monocytes % % Eosinophils % % Basophils % % Neutrophils # (1.3-7.7) k/uL Lymphocytes # (1.0-4.8) k/uL Monocytes # (0-1.0) k/uL Eosinophils # (0-0.7) k/uL Basophils # (0-0.2) k/uL PT (9.0-12.0) sec INR (<1.2) APTT (22.0-30.0) sec Sodium (137-145) mmol/L Potassium (3.5-5.1) mmol/L Chloride (98-107) mmol/L Carbon Dioxide (22-30) mmol/L Anion Gap mmol/L BUN (7-17) mg/dL Creatinine (0.52-1.04) mg/dL Est GFR (CKD-EPI)AfAm (>60 ml/min/1.73 sqM) Est GFR (CKD-EPI)NonAf (>60 ml/min/1.73 sqM) Glucose (74-99) mg/dL Calcium (8.4-10.2) mg/dL Magnesium (1.6-2.3) mg/dL Total Bilirubin (0.2-1.3) mg/dL AST (14-36) U/L ALT (4-34) U/L Alkaline Phosphatase (38-126) U/L Troponin I <0.012 (0.000-0.034) ng/mL NT-Pro-B Natriuret Pep 482 pg/mL Total Protein (6.3-8.2) g/dL Albumin (3.5-5.0) g/dL Disposition Clinical Impression: Pneumonia due to COVID-19 virus Disposition: HOME SELF-CARE Condition: Fair Instructions (If sedation given, give patient instructions): Coronavirus Disease 2019 (COVID-19) Is patient prescribed a controlled substance at d/c from ED?: No Referrals: Erik Mckinnon MD [REFERRING] - 1-2 days Steven García MD [STAFF PHYSICIAN] - 1-2 days Time of Disposition: 20:56
[2021-10-01 18:49] LABS: ALT 18 U/L (4-34); AST 31 U/L (14-36); African American GFR (CKD) >90 (>60 ml/min/1.73 sqM); Albumin 3.3 g/dL (3.5-5.0); Alkaline Phosphatase 100 U/L (38-126); Anion Gap 8 mmol/L; Blood Urea Nitrogen 8 mg/dL (7-17); Calcium 8.7 mg/dL (8.4-10.2); Carbon Dioxide 21 mmol/L (22-30); Chloride 108 mmol/L (98-107); Glucose 152 mg/dL (74-99); Magnesium 1.8 mg/dL (1.6-2.3); Non-African American GFR(CKD) >90 (>60 ml/min/1.73 sqM); Potassium 5.2 mmol/L (3.5-5.1); Sodium 137 mmol/L (137-145); Total Bilirubin 0.6 mg/dL (0.2-1.3); Total Protein 6.3 g/dL (6.3-8.2)
[2021-10-01 18:59] LABS: Basophils % (A) 1 %; Eosinophils # (A) 0.5 k/uL (0-0.7); Eosinophils % (A) 7 %; HCT 35.7 % (34.0-46.0); HGB 11.6 gm/dL (11.4-16.0); INR 0.9 (<1.2); Lymphocytes # (A) 1.6 k/uL (1.0-4.8); Lymphocytes % (A) 22 %; MCH 28.6 pg (25.0-35.0); MCHC 32.5 g/dL (31.0-37.0); MCV 88.1 fL (80.0-100.0); Monocytes # (A) 0.4 k/uL (0-1.0); Monocytes % (A) 5 %; Neutrophils # (A) 4.8 k/uL (1.3-7.7); Neutrophils % (A) 64 %; Platelet Count 195 k/uL (150-450); RBC 4.06 m/uL (3.80-5.40); RDW 13.4 % (11.5-15.5); WBC 7.4 k/uL (3.8-10.6)
[2021-10-01 20:07] VITALS: BP 167/82; PULSE 89; RESP 24
--- NOTE | 2021-10-01 20:13 | CT ---
EXAMINATION TYPE: CT angio chest DATE OF EXAM: 10/01/2021 COMPARISON: None HISTORY: SOB CT DLP: 353.8 mGycm Automated exposure control for dose reduction was used. CONTRAST: Performed with IV Contrast, patient injected with 100 mL of Isovue 370. There are 3-D post processed images. There is moderate patchy peripheral pulmonary infiltrates. There is irregular bilateral pleural thick ening. Heart size is normal. There is no pericardial effusion. There is no mediastinal adenopathy. Thoracic aorta is intact. There are a few bilateral bronchial lym ph nodes up to 1 cm. There is normal contrast opacification of the pulmonary arteries. There are no filling defects. Thora cic aorta is intact. There is no aneurysm or dissection. The thoracic vertebra have normal alignment. There is no compression fracture. Sternum is intact. The re is no evidence of a rib fracture. IMPRESSION: No evidence of pulmonary embolism. Extensive bilateral pulmonary infiltrates and also significant ple ural thickening. Mild bronchial adenopathy. Findings more likely related to multifocal pneumonia..
== END 2021-10-01 21:17 | disposition home or self-care (01) ==
LOC: EC 16:36
DX: U07.1 COVID-19 (principal); J12.82 Pneumonia due to coronavirus disease 2019; I10 Essential (primary) hypertension; E11.9 Type 2 diabetes mellitus without complications; Z79.84 Long term (current) use of oral hypoglycemic drugs; Z90.49 Acquired absence of other specified parts of digestive tract; Z87.891 Personal history of nicotine dependence
CPT/HCPCS: 99285; 36415; 93005; 83880; 80053; 83735; 84484; 85025; 85610; 85730; 71275; Q9967

== ENCOUNTER → 2023-11-26 | Outpatient (CLI) | payer MEDICARE ==
--- NOTE | 2023-11-26 15:01 | MM ---
Reason for Exam: Additional evaluation requested from prior study. Last screening mammogram was performed 2 month(s) ago. Patient History: Menarche at age 17. First Full-Term at age 19. Postmenopausal. Breast cancer, left, age 67. Patient used Hormonal Contraceptives for 10 years. Tissue Density: Left: The breast tissue is heterogeneously dense. This may lower the sensitivity of mammography. Findings: Analyzed By CAD. There are fine clustered calcifications seen upper left breast with one grouping at the level of the nipple and one grouping the more medial. Tissue diagnosis is recommended utilizing stereotactic core biopsy. Overall Assessment: Suspicious, BI-RAD 4 Management: Stereotactic Core Biopsy of the left breast. . Results were given to the patient verbally at the time of exam. Patient should continue monthly self-breast exams. A clinical breast exam by your physician is recommended on an annual basis. This exam should not preclude additional follow-up of suspicious palpable abnormalities. Note on Lexii scores and lifetime risk: 1. A Lexii score greater than 3% is considered moderate risk. If this is the case, consider specialist referral to assess eligibility for a risk reducing agent. 2. If overall lifetime risk for the development of breast cancer is 20% or higher, the patient may qualify for future screening with alternating mammogram and breast MRI. Electronically signed and approved by: Zion Alexis M.D. Radiologis
== END | disposition home or self-care (01) ==
LOC: RADMAMWWP 13:58
PROVIDERS: ATTEND Surgery
DX: R92.332 Mammographic heterogeneous density, left breast (principal); Z85.3 Personal history of malignant neoplasm of breast; Z78.0 Asymptomatic menopausal state; Z92.0 Personal history of contraception
CPT/HCPCS: 77065; G0279; 77061

== ENCOUNTER → 2023-11-26 | Outpatient (CLI) | payer MEDICARE ==
[2023-11-26 08:43] VITALS: BP 148/87; PULSE 82; RESP 18; TEMP 97.9
--- NOTE | 2023-11-26 09:04 | P.GSHP ---
History of Present Illness H&P Date: 11/26/23 Chief Complaint: DCIS right breast Cami is a 67-year-old female seen in consultation for Dr. Tyson regarding a diagnosis of DCIS of the right breast. She underwent a bilateral mammogram on 09-29-2023. A diagnostic mammogram of the right breast was recommended and performed on 10-08-2023. This revealed some pleomorphic calcifications in the right breast in the upper outer quadrant at 10:00. Lesions of concern were identified in the left breast. The patient underwent a stereotactic core biopsy of the right breast lesion. This was done on 11-05-2023. This revealed DCIS ER positive, high nuclear grade. Her mammograms were reviewed with Dr. Kowalski who recommended additional mag views of the left breast and that prior mammogrmas be obtained. She obtains mammograms regularly. She does not feel any new lumps masses or nodules of concern in either breast. She has not had any recent breast trauma or infection. She had a cyst removed from her left breast in the past. caffeine: 2 cups/day nicotine: stopped 35 years ago chocolate: none BCP: used for about 15 years hormones: used them for about 2 years at about 52 Family History: parents young so unknown; ? father bone cancer Hormonal History: menarche: 17 , breast fed: no, age at first : 19 menopause: 52 hormones: about 2 years Surgical history: appy cyst in breast tonsil Medical History: HTN diabetes Social History: nicotine: stopped 35 years ago used to smoke 2 PPD for about 15 years alcohol: occasional drugs: none - Constitutional Constitutional: Denies chills, Denies fever - EENT Eyes: denies blurred vision, denies pain Ears: deny: decreased hearing, tinnitus Ears, nose, mouth and throat: Denies headache, Denies sore throat - Breasts Breasts: bilateral: as per HPI - Cardiovascular Cardiovascular: Denies chest pain, Denies shortness of breath - Respiratory Respiratory: Denies cough, Denies 7 - Gastrointestinal Gastrointestinal: Denies abdominal pain, Denies diarrhea, Denies nausea, Denies vomiting - Genitourinary (Female) Genitourinary: Denies dysuria, Denies hematuria - Menstruation Menstruation: Reports postmenopausal - Musculoskeletal Musculoskeletal: Denies myalgias - Integumentary Integumentary: Denies pruritus, Denies rash - Neurological Neurological: Denies numbness, Denies weakness - Psychiatric Psychiatric: Denies anxiety, Denies depression - Endocrine Endocrine: Denies fatigue, Denies weight change - Hematologic/Lymphatic Comment: none - Allergic/Immunologic Allergic/Immunologic: Reports as per HPI Past Medical History Past Medical History: Diabetes Mellitus, Hypertension History of Any Multi-Drug Resistant Organisms: None Reported Past Surgical History: Adenoidectomy, Appendectomy, Tonsillectomy Past Psychological History: No Psychological Hx Reported Smoking Status: Former smoker Past Alcohol Use History: None Reported Past Drug Use History: None Reported Medications and Allergies Home Medications Medication Instructions Recorded Confirmed Type Atorvastatin Calcium [Lipitor] 5 mg PO Q48H 09/07/21 11/26/23 History Losartan Potassium 100 mg PO DAILY 09/07/21 11/26/23 History glipiZIDE [Glucotrol XL] 2.5 mg PO BID 09/07/21 11/26/23 History metFORMIN HCL [Glucophage XR] 1,500 mg PO W/SUPPER 09/07/21 11/26/23 History Allergies Allergy/AdvReac Type Severity Reaction Status Date / Time No Known Allergies Allergy Verified 10/01/21 17:07 Surgical - Exam Vital Signs Temp Pulse Resp BP Pulse Ox 97.9 F 82 18 148/87 100 11/26/23 08:28 11/26/23 08:28 11/26/23 08:28 11/26/23 08:28 11/26/23 08:28 - General no distress - Eyes normal ocular movement - Neck trachea midline - Respiratory normal respiratory effort, clear to auscultation - Cardiovascular Rhythm: regular Heart Sounds: normal: S1, S2 - Abdomen Abdomen: soft, non tender, no guarding, no rigid, no rebound - Integumentary normal turgor - Neurologic no disoriented, no combative - Musculoskeletal normal gait - Psychiatric oriented to time, oriented to person, oriented to place, speech is normal, memory intact Breast Exam: BRA: 38B Inspection: Bilateral grade 2 ptosis Palpation: Right breast: Multi positional exam fibrocystic changes no dominant masses or no dules of concern, biopsy site clean and dry Right axilla: No adenopathy of concern Left breast: Multi positional exam fibrocystic changes no dominant masses or nodules of concern Left axilla: No adenopathy of concern Results Mammogram reviewed with Dr. Kowalski Assessment and Plan Assessment: Impression: Fine pleomorphic calcifications approximately 2 cm in by 2 cm in right breast at 10 o'clock position stereotactic core biopsy positive for DCIS Calcifications left breast radiology would like to compare with old films as well as obtain mag views of this areas Plan: Presentation of case at tumor board Obtain old mammograms Magnification views of left breast Follow-up after above CC: Dr. Tyson
== END ==
LOC: WWCWWP 07:50
PROVIDERS: ATTEND Surgery
DX: R92.1 Mammographic calcification found on diagnostic imaging of breast (principal); D05.11 Intraductal carcinoma in situ of right breast; D05.12 Intraductal carcinoma in situ of left breast; E11.9 Type 2 diabetes mellitus without complications; I10 Essential (primary) hypertension; I89.0 Lymphedema, not elsewhere classified; Z87.891 Personal history of nicotine dependence; Z79.84 Long term (current) use of oral hypoglycemic drugs; Z79.899 Other long term (current) drug therapy

== ENCOUNTER → 2023-12-16 | Day surgery (SDC) | payer MEDICARE ==
[2023-12-16 07:53] VITALS: BP 179/98; PULSE 94; RESP 16; TEMP 97.9
--- NOTE | 2023-12-16 09:09 | P.PCN ---
Date of Procedure: 12/16/23 Preoperative Diagnosis: Microcalcifications of concern 2 sites left breast Postoperative Diagnosis: Same Procedure(s) Performed: Stereotactic core biopsy 2 sites left breast Anesthesia: local Surgeon: Perlita Castro Operative Findings: Breast tissue 2 sites, Posterior site/secure cheryl Top-Hat/calcifications in specimen Anterior site/TriMark bowtie/calcifications in specimen Description of Procedure: Breast tissue 2 sites, Posterior site/secure cheryl Top-Hat/calcifications in specimen Anterior site/TriMark bowtie/calcifications in specimen The patient is a 67-year-old female who was noted to have 2 sites of concern of microcalcifications in the left breast. Stereotactic core biopsy was recommended. Risk and benefits of the procedure were discussed with the patient. She understood and wished to proceed. The patient was taken to the stereotactic core biopsy room. Medial to lateral approach was utilized. The posterior calcifications were identified complex care nurse practitioner film. The lesion was targeted. The breast was prepped using Hibiclens. 20 cc of 1% lidocaine was used to anesthetize the area of concern. A 9 gauge vacuum- assisted core rotating biopsy needle was driven to the correct coordinates. A prefire film was obtained. The needle was noted to be in the correct location. The needle was fired. The needle was noted to be in the correct location. 12 core biopsy specimens were obtained. Radiograph of the specimen revealed calcifications of concern were sampled. A secure cheryl Top-Hat clip was placed. The patient was repositioned. A medial to lateral approach was utilized. The anterior calcifications were identified on a complex care nurse practitioner film. The lesion was targeted. The breast was prepped using Hibiclens. 20 cc of 1% lidocaine was used to anesthetize the area of concern. A 9 gauge vacuum-assisted core rotating biopsy needle was driven to the correct coordinates. A prefire film was obtained. The needle was noted to be in the correct location. The needle was fired. The needle was noted to be in the correct location. 12 core biopsy specimens were obtained. Radiograph of the specimen revealed calcifications of concern were sampled. A Tri Cheryl bowtie clip was placed. A radiograph is obtained postprocedure to assure that the areas of concern were. The specimen is sent to pathology. The patient will follow-up with Dr. Peralta next week.
--- NOTE | 2023-12-17 09:48 | MM ---
Date of Procedure: 12/16/23 Preoperative Diagnosis: Microcalcifications of concern 2 sites left breast Postoperative Diagnosis: Same Procedure(s) Performed: Stereotactic core biopsy 2 sites left breast Anesthesia: local Surgeon: Perlita Castro Operative Findings: Breast tissue 2 sites, Posterior site/secure cheryl Top-Hat/calcifications in specimen Anterior site/TriMark bowtie/calcifications in specimen Description of Procedure: Breast tissue 2 sites, Posterior site/secure cheryl Top-Hat/calcifications in specimen Anterior site/TriMark bowtie/calcifications in specimen The patient is a 67-year-old female who was noted to have 2 sites of concern of microcalcifications in the left breast. Stereotactic core biopsy was recommended. Risk and benefits of the procedure were discussed with the patient. She understood and wished to proceed. The patient was taken to the stereotactic core biopsy room. Medial to lateral approach was utilized. The posterior calcifications were identified unified communications engineer film. The lesion was targeted. The breast was prepped using Hibiclens. 20 cc of 1% lidocaine was used to anesthetize the area of concern. A 9 gauge vacuum- assisted core rotating biopsy needle was driven to the correct coordinates. A prefire film was obtained. The needle was noted to be in the correct location. The needle was fired. The needle was noted to be in the correct location. 12 core biopsy specimens were obtained. Radiograph of the specimen revealed calcifications of concern were sampled. A secure cheryl Top-Hat clip was placed. The patient was repositioned. A medial to lateral approach was utilized. The anterior calcifications were identified on a unified communications engineer film. The lesion was targeted. The breast was prepped using Hibiclens. 20 cc of 1% lidocaine was used to anesthetize the area of concern. A 9 gauge vacuum-assisted core rotating biopsy needle was driven to the correct coordinates. A prefire film was obtained. The needle was noted to be in the correct location. The needle was fired. The needle was noted to be in the correct location. 12 core biopsy specimens were obtained. Radiograph of the specimen revealed calcifications of concern were sampled. A Tri Cheryl bowtie clip was placed. A radiograph is obtained postprocedure to assure that the areas of concern were. The specimen is sent to pathology. The patient will follow-up with Dr. Peralta next week. [facility]
== END ==
LOC: RADMAMWWP 07:30
PROVIDERS: ATTEND Surgery
DX: R92.8 Other abnormal and inconclusive findings on diagnostic imaging of breast (principal); N60.22 Fibroadenosis of left breast; N60.12 Diffuse cystic mastopathy of left breast
CPT/HCPCS: 88305; 19081; 19082; A4648; J2001

== ENCOUNTER → 2023-12-23 | Outpatient (CLI) | payer MEDICARE ==
--- NOTE | 2023-12-23 12:21 | P.PN ---
Subjective Progress Note Date: 12/23/23 Principal diagnosis: right breast DCIS History of Present Illness H&P Date: 12/23/23 Chief Complaint: DCIS right breast Cami is a 67-year-old female seen in consultation for Dr. Tyson regarding a diagnosis of DCIS of the right breast. She underwent a bilateral mammogram on 09-29-2023. A diagnostic mammogram of the right breast was recommended and performed on 10-08-2023. This revealed some pleomorphic calcifications in the right breast in the upper outer quadrant at 10:00. Lesions of concern were identified in the left breast. The patient underwent a stereotactic core biopsy of the right breast lesion. This was done on 11-05-2023. This revealed DCIS ER positive, high nuclear grade. Her mammograms were reviewed with Dr. Kowalski who recommended additional mag views of the left breast and that prior mammogrmas be obtained. She obtains mammograms regularly. She does not feel any new lumps masses or nodules of concern in either breast. She has not had any recent breast trauma or infection. She had a cyst removed from her left breast in the past. Old mammograms were reviewed and stero biopsy of two sites in the left breast were recommended. These were done on 12-16-23 and both sites were benign. The are of DCIS in anna right breast measures about 2 by 2 cm. Her case was presented at tumor board aon 12-21-23 and recommendation for right needle localization lumpectomy and SNB, possible AND. caffeine: 2 cups/day nicotine: stopped 35 years ago chocolate: none BCP: used for about 15 years hormones: used them for about 2 years at about 52 Family History: parents young so unknown; ? father bone cancer Hormonal History: menarche: 17 , breast fed: no, age at first : 19 menopause: 52 hormones: about 2 years Surgical history: appy cyst in breast tonsil Medical History: HTN diabetes Social History: nicotine: stopped 35 years ago used to smoke 2 PPD for about 15 years alcohol: occasional drugs: none - Constitutional Constitutional: Denies chills, Denies fever - EENT Eyes: denies blurred vision, denies pain Ears: deny: decreased hearing, tinnitus Ears, nose, mouth and throat: Denies headache, Denies sore throat - Breasts Breasts: bilateral: as per HPI - Cardiovascular Cardiovascular: Denies chest pain, Denies shortness of breath - Respiratory Respiratory: Denies cough - Gastrointestinal Gastrointestinal: Denies abdominal pain, Denies diarrhea, Denies nausea, Denies vomiting - Genitourinary (Female) Genitourinary: Denies dysuria, Denies hematuria - Menstruation Menstruation: Reports postmenopausal - Musculoskeletal Musculoskeletal: Denies myalgias - Integumentary Integumentary: Denies pruritus, Denies rash - Neurological Neurological: Denies numbness, Denies weakness - Psychiatric Psychiatric: Denies anxiety, Denies depression - Endocrine Endocrine: Denies fatigue, Denies weight change - Hematologic/Lymphatic Comment: none - Allergic/Immunologic Allergic/Immunologic: Reports as per HPI Past Medical History Past Medical History: Diabetes Mellitus, Hypertension History of Any Multi-Drug Resistant Organisms: None Reported Past Surgical History: Adenoidectomy, Appendectomy, Tonsillectomy Past Psychological History: No Psychological Hx Reported Smoking Status: Former smoker Past Alcohol Use History: None Reported Past Drug Use History: None Reported Medications and Allergies Home Medications Medication Instructions Recorded Confirmed Type Atorvastatin Calcium [Lipitor] 5 mg PO Q48H 09/07/21 11/26/23 History Losartan Potassium 100 mg PO DAILY 09/07/21 11/26/23 History glipiZIDE [Glucotrol XL] 2.5 mg PO BID 09/07/21 11/26/23 History metFORMIN HCL [Glucophage XR] 1,500 mg PO W/SUPPER 09/07/21 11/26/23 History Allergies Allergy/AdvReac Type Severity Reaction Status Date / Time No Known Allergies Allergy Verified 10/01/21 17:07 Surgical - Exam Vital Signs Temp Pulse Resp BP Pulse Ox 97.9 F 82 18 148/87 100 11/26/23 08:28 11/26/23 08:28 11/26/23 08:28 11/26/23 08:28 11/26/23 08:28 - General no distress - Eyes normal ocular movement - Neck trachea midline - Respiratory normal respiratory effort, clear to auscultation - Cardiovascular Rhythm: regular Heart Sounds: normal: S1, S2 - Abdomen Abdomen: soft, non tender, no guarding, no rigid, no rebound - Integumentary normal turgor - Neurologic no disoriented, no combative - Musculoskeletal normal gait - Psychiatric oriented to time, oriented to person, oriented to place, speech is normal, memory intact Breast Exam: BRA: 38B Inspection: Bilateral grade 2 ptosis Palpation: Right breast: Multi positional exam fibrocystic changes no dominant masses or nodules of concern, biopsy site clean and dry Right axilla: No adenopathy of concern Left breast: Multi positional exam fibrocystic changes no dominant masses or nodules of concern Left axilla: No adenopathy of concern Results Mammogram reviewed with Dr. Kowalski Assessment and Plan Assessment: Impression: Fine pleomorphic calcifications approximately 2 cm in by 2 cm in right breast at 10 o'clock position stereotactic core biopsy positive for DCIS Calcifications left breast radiology would like to compare with old films as well as obtain mag views of this areas Plan: Presentation of case at tumor board Obtain old mammograms Magnification views of left breast Follow-up after above CC: Dr. Tyson Additional CC's: Jake Tyson Objective - Vital Signs Vital signs: Intake & Output 12/22/23 12/23/23 12/23/23 18:59 06:59 18:59 Weight 81.647 kg - Constitutional General appearance: Present: cooperative - EENT Eyes: Present: EOMI ENT: Present: hearing grossly normal - Neck Neck: Present: normal ROM - Respiratory Respiratory: bilateral: CTA - Cardiovascular Heart sounds: normal: S1, S2 - Gastrointestinal General gastrointestinal: Present: soft - Integumentary Integumentary: Present: normal turgor - Musculoskeletal Musculoskeletal: Present: gait normal - Psychiatric Psychiatric: Present: A&O x's 3, appropriate affect, intact judgment & insight - Additional findings Additional findings: Breast Exam: BRA: 38B Inspection: Bilateral grade 2 ptosis Palpation: Right breast: Multi positional exam fibrocystic changes no dominant masses or nodules of concern, biopsy site clean and dry Right axilla: No adenopathy of concern Left breast: Multi positional exam fibrocystic changes no dominant masses or nodules of concern, biopsy sites clean ans dry Left axilla: No adenopathy of concern Assessment and Plan Assessment: Impression: Impression: Fine pleomorphic calcifications approximately 2 cm in by 2 cm in right breast at 10 o'clock position stereotactic core biopsy positive for DCIS Calcifications left breast stero biopsy of two sites benign Plan: Presentation of case at tumor board done on 12-21-23 right breast needle localization and lumpectomy, possible right breast oncoplastic tissue transfer righr sentinel node injection, right sentinel node biopsy possible right axillary node dissection Risk and benefits of the procedure were discussed with the patient and her . Risk include but are not limited to bleeding, infection, reaction to the anesthetic. If margins were to be positive then further tissue may need to be removed. Risk of the sentinel node biopsy include but are not limited to decreased sensation to the inner arm, lymphedema, injury to the thoracodorsal or long thoracic nerve with a winged scapula. Again the patient and her understand and wish to proceed. CC: Dr. Tyson
[2023-12-23 12:45] VITALS: BP 183/103; PULSE 82; RESP 15; TEMP 98
== END ==
LOC: WWCWWP 11:52
PROVIDERS: ATTEND Surgery
DX: R92.1 Mammographic calcification found on diagnostic imaging of breast (principal); D05.11 Intraductal carcinoma in situ of right breast; D05.12 Intraductal carcinoma in situ of left breast; E11.9 Type 2 diabetes mellitus without complications; I10 Essential (primary) hypertension; Z87.891 Personal history of nicotine dependence; Z79.84 Long term (current) use of oral hypoglycemic drugs; Z79.899 Other long term (current) drug therapy

== ENCOUNTER 2024-01-11 11:29 | Day surgery (SDC) | payer MEDICARE ==
--- NOTE | 2024-01-06 16:18 | P.PN ---
Subjective Progress Note Date: 01/06/24 Principal diagnosis: right breast DCIS 01-06-24 Principal diagnosis: right breast DCIS History of Present Illness H&P Date: 01-06-24 Chief Complaint: DCIS right breast Cami is a 67-year-old female seen in consultation for Dr. Tyson regarding a diagnosis of DCIS of the right breast. She underwent a bilateral mammogram on 09-29-2023. A diagnostic mammogram of the right breast was recommended and performed on 10-08-2023. This revealed some pleomorphic calcifications in the right breast in the upper outer quadrant at 10:00. Lesions of concern were identified in the left breast. The patient underwent a stereotactic core biopsy of the right breast lesion. This was done on 11-05-2023. This revealed DCIS ER positive, high nuclear grade. Her mammograms were reviewed with Dr. Kowalski who recommended additional mag views of the left breast and that prior mammograms be obtained. She obtains mammograms regularly. She does not feel any new lumps masses or nodules of concern in either breast. She has not had any recent breast trauma or infection. She had a cyst removed from her left breast in the past. Old mammograms were reviewed and stero biopsy of two sites in the left breast were recommended. These were done on 12-16-23 and both sites were benign. The are of DCIS in the right breast measures about 2 by 2 cm. Her case was presented at tumor board on 12-21-23 and recommendation for right needle localization lumpectomy and SNB, possible AND. caffeine: 2 cups/day nicotine: stopped 35 years ago chocolate: none BCP: used for about 15 years hormones: used them for about 2 years at about 52 Family History: parents young so unknown; ? father bone cancer Hormonal History: menarche: 17 , breast fed: no, age at first : 19 menopause: 52 hormones: about 2 years Surgical history: appy cyst in breast tonsil Medical History: HTN diabetes Social History: nicotine: stopped 35 years ago used to smoke 2 PPD for about 15 years alcohol: occasional drugs: none - Constitutional Constitutional: Denies chills, Denies fever - EENT Eyes: denies blurred vision, denies pain Ears: deny: decreased hearing, tinnitus Ears, nose, mouth and throat: Denies headache, Denies sore throat - Breasts Breasts: bilateral: as per HPI - Cardiovascular Cardiovascular: Denies chest pain, Denies shortness of breath - Respiratory Respiratory: Denies cough - Gastrointestinal Gastrointestinal: Denies abdominal pain, Denies diarrhea, Denies nausea, Denies vomiting - Genitourinary (Female) Genitourinary: Denies dysuria, Denies hematuria - Menstruation Menstruation: Reports postmenopausal - Musculoskeletal Musculoskeletal: Denies myalgias - Integumentary Integumentary: Denies pruritus, Denies rash - Neurological Neurological: Denies numbness, Denies weakness - Psychiatric Psychiatric: Denies anxiety, Denies depression - Endocrine Endocrine: Denies fatigue, Denies weight change - Hematologic/Lymphatic Comment: none - Allergic/Immunologic Allergic/Immunologic: Reports as per HPI Past Medical History Past Medical History: Diabetes Mellitus, Hypertension History of Any Multi-Drug Resistant Organisms: None Reported Past Surgical History: Adenoidectomy, Appendectomy, Tonsillectomy Past Psychological History: No Psychological Hx Reported Smoking Status: Former smoker Past Alcohol Use History: None Reported Past Drug Use History: None Reported Medications and Allergies Home Medications Medication Instructions Recorded Confirmed Type Atorvastatin Calcium [Lipitor] 5 mg PO Q48H 09/07/21 11/26/23 History Losartan Potassium 100 mg PO DAILY 09/07/21 11/26/23 History glipiZIDE [Glucotrol XL] 2.5 mg PO BID 09/07/21 11/26/23 History metFORMIN HCL [Glucophage XR] 1,500 mg PO W/SUPPER 09/07/21 11/26/23 History Allergies Allergy/AdvReac Type Severity Reaction Status Date / Time No Known Allergies Allergy Verified 10/01/21 17:07 Surgical - Exam Vital Signs Temp Pulse Resp BP Pulse Ox 97.9 F 82 18 148/87 100 11/26/23 08:28 11/26/23 08:28 11/26/23 08:28 11/26/23 08:28 11/26/23 08:28 - General no distress - Eyes normal ocular movement - Neck trachea midline - Respiratory normal respiratory effort, clear to auscultation - Cardiovascular Rhythm: regular Heart Sounds: normal: S1, S2 - Abdomen Abdomen: soft, non tender, no guarding, no rigid, no rebound - Integumentary normal turgor - Neurologic no disoriented, no combative - Musculoskeletal normal gait - Psychiatric oriented to time, oriented to person, oriented to place, speech is normal, memory intact Breast Exam: BRA: 38B Inspection: Bilateral grade 2 ptosis Palpation: Right breast: Multi positional exam fibrocystic changes no dominant masses or nodules of concern, biopsy site clean and dry Right axilla: No adenopathy of concern Left breast: Multi positional exam fibrocystic changes no dominant masses or nodules of concern Left axilla: No adenopathy of concern Results Mammogram reviewed with Dr. Kowalski Assessment and Plan Assessment: Impression: Fine pleomorphic calcifications approximately 2 cm in by 2 cm in right breast at 10 o'clock position stereotactic core biopsy positive for DCIS Calcifications left breast radiology would like to compare with old films as well as obtain mag views of this areas Plan: Presentation of case at tumor board Obtain old mammograms Magnification views of left breast Follow-up after above CC: Dr. Tyson Additional CC's: Jake Tyson Objective - Vital Signs Vital signs: Intake & Output 01/05/24 01/06/24 01/06/24 18:59 06:59 18:59 Weight 83.461 kg - Constitutional General appearance: Present: cooperative - EENT Eyes: Present: EOMI ENT: Present: hearing grossly normal - Neck Neck: Present: normal ROM - Respiratory Respiratory: bilateral: CTA - Cardiovascular Heart sounds: normal: S1, S2 - Integumentary Integumentary: Present: normal turgor - Musculoskeletal Musculoskeletal: Present: gait normal - Psychiatric Psychiatric: Present: A&O x's 3, appropriate affect, intact judgment & insight - Additional findings Additional findings: Breast Exam: BRA: 38B Inspection: Bilateral grade 2 ptosis Palpation: Right breast: Multi positional exam fibrocystic changes no dominant masses or nodules of concern, biopsy site clean and dry Right axilla: No adenopathy of concern Left breast: Multi positional exam fibrocystic changes no dominant masses or nodules of concern, biopsy sites clean ans dry Left axilla: No adenopathy of concern Assessment and Plan Assessment: Impression: Impression: Fine pleomorphic calcifications approximately 2 cm in by 2 cm in right breast at 10 o'clock position stereotactic core biopsy positive for DCIS Calcifications left breast stero biopsy of two sites benign Plan: Presentation of case at tumor board done on 12-21-23 right breast needle localization and lumpectomy, possible right breast oncoplastic tissue transfer right sentinel node injection, right sentinel node biopsy possible right axillary node dissection Risk and benefits of the procedure were discussed with the patient and her . Risk include but are not limited to bleeding, infection, reaction to the anesthetic. If margins were to be positive then further tissue may need to be removed. Risk of the sentinel node biopsy include but are not limited to decreased sensation to the inner arm, lymphedema, injury to the thoracodorsal or long thoracic nerve with a winged scapula. Again the patient and her understand and wish to proceed. CC: Dr. Tyson
[~2024-01-11 11:29] MED LIST: HEPARIN SODIUM,PORCINE 5,000 UNIT/ML 1 ML VIAL SQ PRN; HYDROmorphone 0.5 MG/0.5 ML SYRINGE IVP PRN; MIDAZOLAM 2 MG/2 ML VIAL IV PRN
[2024-01-11] MEDS: LACTATED RINGERS 1,000 ML IV SCH (12:08)
[2024-01-11] MEDS: ONDANSETRON 4 MG/2 ML VIAL IVP ONE (12:11)
[2024-01-11] MEDS: DEXAMETHASONE SOD PHOSPHATE 4 MG/ML 1 ML VIAL IV ONE (12:11)
[2024-01-11] MEDS ORDERED: ALPRAZolam 0.25 MG TAB ONE (12:21)
[2024-01-11] MEDS: ALPRAZolam 0.25 MG TAB PO ONE (12:22)
[2024-01-11] MEDS: LIDOCAINE 1% INJ 10MG/ML (20 ML MDV) SQ ONE ×3 (14:19→17:01)
[2024-01-11] MEDS: HEPARIN SODIUM,PORCINE 5,000 UNIT/ML 1 ML VIAL SQ ONE (15:17)
[2024-01-11] MEDS ORDERED: MIDAZOLAM 2 MG/2 ML VIAL ONE (15:17)
[2024-01-11] MEDS ORDERED: LIDOCAINE 1% INJ 10MG/ML (20 ML MDV) ONE (15:17)
[2024-01-11] MEDS ORDERED: KETOROLAC 15 MG/ML 1 ML VIAL ONE (15:17)
[2024-01-11] MEDS ORDERED: SUCCINYLCHOLINE CHLORIDE 200 MG/10 ML VIAL IV ONE (15:17)
[2024-01-11] MEDS ORDERED: PROPOFOL 10 MG/ML 20 ML VIAL IV ONE (15:17)
[2024-01-11] MEDS ORDERED: fentaNYL (PF) 50 MCG/ML 2 ML AMP ONE (15:17)
[2024-01-11] MEDS ORDERED: HYDROmorphone (PF) 1 MG/ML ONE (15:17)
--- NOTE | 2024-01-11 15:28 | P.NAPBC ---
NAPBC Queries - NAPBC Queries Was patient's case review presented at [facility] tumor board? If no, comment.: Yes Was patient's pathology reviewed at [facility]? If no, comment.: Yes Was breast conservation surgery offered? If no, comment.: Yes Was sentinel node biopsy offered? If no, comment.: Yes Was diagnosis confirmed by percutaneous core biopsy? If no, comment.: Yes Is patient mastectomy patient?: No Was a preop referral to reconstructive surgeon offered?: No Clinical Stage: stage 0 right breast 2 cm area
--- NOTE | 2024-01-11 16:42 | NM ---
EXAMINATION TYPE: NM sentinel node injection DATE OF EXAM: 01/11/2024 COMPARISON: NONE CLINICAL INDICATION: Female, 68 years old with history of D05.11 BREAST CANCER; TECHNIQUE AND FINDINGS: The procedure of sentinel lymph node injection was explained to the patient. The benefits, alternatives, and risks were discussed. An informed consent was then obtained. Overlying skin is cleaned with sterile alcohol. Following this, 414 uCi Tc99m Tilmanocept was inject ed in the upper outer aspect of the right nipple intradermally. The patient tolerated the procedure well without any immediate complication. The patient was kept in the radiology department for short stay after the procedure and then taken to surgery for surgical p rocedure what is presumed intraoperative gamma probe will be used for sentinel lymph node detection. IMPRESSION: Right breast radiotracer injection for sentinel node localization as above.
--- NOTE | 2024-01-11 17:06 | P.OP ---
Date of Procedure: 01/11/24 Preoperative Diagnosis: DCIS right breast Postoperative Diagnosis: Same Procedure(s) Performed: Right breast needle localization lumpectomy, oncoplastic tissue transfer 50 cm, sentinel node biopsy Anesthesia: PATT Surgeon: Perlita Castro Estimated Blood Loss (ml): 5 IV fluids (ml): 500 Pathology: other (Breast tissue/axillary lymph node) Condition: stable Disposition: same day Indications for Procedure: DCIS right breast Operative Findings: Dense breast tissue Description of Procedure: The patient was first seen in the radiology department. Needle localization of the area of concern was performed. Radiotracer was injected in the periareolar region. The patient was brought to the operative suite. Following induction of anesthesia the neoprobe was used to interrogate the axilla. Radioactivity was identified. The right breast and axilla were prepped and draped in a sterile fashion. Using the neoprobe for direction an incision was made in the axilla. The area of radioactivity was dissected free. This was grasped using an Allis clamp. Using the harmonic scalpel the tissue was dissected free. A 10-second count on the radioactive lymph node was 2224. The background count was 8. After we are sure that hemostasis was attained the deep tissues were closed using 3-0 Vicryl suture. The subcutaneous tissue was closed using 3-0 Vicryl suture. The skin was closed using 4-0 Monocryl. The area of the breast was approached. After carefully evaluating the radiograph for location of the clip an incision was made. The lateral wire was dissected free from the skin into the wound. The tissue was grasped using an Allis clamp. The surrounding tissue was excised. The specimen was 5x 4 cm. It was painted for orientation. Radiograph revealed that the area of concern had b een removed including the clip. The wound was well-irrigated. Titanium clips were placed. An inferior pillar 6 x 2 cm was formed. A superior pillar 6 x 4 cm was formed. The pillars were brought together using 3-0 Vicryl suture. Total oncoplastic tissue transfer was 50 cm. Posterior dissection was onto the pectoralis muscle. Prior to developing the pillars new medial anterior and superior margins were obtained. All were painted for orientation. Surgicel in powder form was placed and the subcutaneous tissue was brought together using 3- 0 Vicryl suture. The skin was closed using 4-0 Monocryl. 1% lidocaine was used to anesthetize the area of the incision. The patient tolerated the procedure in stable condition. All instrument and sponge counts were correct at the end of the case.
[2024-01-11 17:33] LABS: Glucose,Whole Blood 172 mg/dL (70-110)
[2024-01-11 17:42] VITALS: TEMP 97.2
[2024-01-11 18:45] VITALS: BP 148/67; PULSE 85; RESP 18
--- NOTE | 2024-01-13 12:18 | USB ---
Findings: No definitive mass or biopsy clip visualized. IMPRESSION: No definitive mass or biopsy clip visualized. Patient underwent subsequent needle localization with mammography. Electronically signed and approved by: Neptali Claros DO
--- NOTE | 2024-01-18 10:20 | MM ---
Pathology Description: Approach: Lateral to Medial The procedure of needle localization with wire placement and than surgical excision was explained to the patient. Benefits, alternatives, and risks were discussed. An informed consent was then obtained. The shortest pathway for procedure was chosen. The overlying skin was prepped and draped in usual sterile fashion. Lidocaine was used as anesthetic into the skin and subcutaneous tissue up to the level of area of concern. A 15 cm needle was used. It was placed via a lateral approach under mammographic guidance. Subsequent 90 degrees mammogram show the needle to be in satisfactory position relative to the targeted area. At this point, wire was placed and the needle was withdrawn. The wire was fixed to patient's skin. Images were marked for surgeon. The patient tolerated the procedure well without any immediate complication. The patient was kept in the radiology department for short stay after the procedure and then taken to surgery for surgical excision. Targeted clip and wire are identified in specimen mammogram. The patient was kept in hospital for short stay after the procedure and then discharged home in stable condition. Impression: Successful, uncomplicated needle localization with wire placement and surgical excision of suspicious group of calcifications in the right breast, full pathology results to follow. Pathology Results: Result: Malignant, Ductal carcinoma in situ, comedo type. Pathology and radiology were reviewed. Findings are concordant. A. RIGHT SENTINEL NODE #1: Two lymph nodes negative for metastasis. CK7 immunostain performed on block A1 and CARMINA immunostain performed on block A2 are confirmatory (controls appropriate). B. RIGHT BREAST, LUMPECTOMY: High grade ductal carcinoma in situ (DCIS) with comedo necrosis and calcifications, margins negative. DCIS measures much less than 1 mm from the anterior margin multifocally, and focally less than 1 mm from the medial margin. Background fibrocystic changes and previous biopsy site. See Surgical Pathology Cancer Case Summary. C. RIGHT ADDITIONAL AXILLARY TISSUE: Five lymph nodes negative for metastasis. D. RIGHT BREAST NEW MEDIAL MARGIN, EXCISION: Benign breast with fibrocystic changes and previous biopsy site. E. RIGHT BREAST NEW SUPERIOR MARGIN, EXCISION: Benign breast tissue with fibrocystic changes. F. RIGHT BREAST, NEW ANTERIOR MARGIN, EXCISION: Benign breast tissue with fibrocystic changes. Overall Assessment: Malignant Management: Surgical Consultation of the right breast. Lymph nodes negative. Lumpectomy positive neoplasm. Electronically signed and approved by: Neptali Claros DO
== END 2024-01-11 18:31 | disposition home or self-care (01) ==
LOC: OR 11:29
PROVIDERS: ATTEND Surgery
DX: D05.11 Intraductal carcinoma in situ of right breast (principal); E11.9 Type 2 diabetes mellitus without complications; I10 Essential (primary) hypertension; Z17.0 Estrogen receptor positive status [ER+]; Z79.84 Long term (current) use of oral hypoglycemic drugs; Z85.3 Personal history of malignant neoplasm of breast; Z87.891 Personal history of nicotine dependence; Z79.899 Other long term (current) drug therapy
CPT/HCPCS: 88342; 88307; 88341; 76098; 19281; 76641; 38792; 19301; 38525; 14001; C1819; A9520; J2250; J0330; J1644; J1100; J0690; J2405; J2001; J3010; J1170; J1885; J2704

== ENCOUNTER → 2024-01-20 | Outpatient (CLI) | payer MEDICARE ==
--- NOTE | 2024-01-20 11:53 | P.PN ---
Progress Note - Text Progress Note Date: 01/20/24 Cami is status post right breast lumpetomu adn SNB on 01-11-24. 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 7 nodes removed, all (-). Examination: lungs: Clear Heart: Regular rate and rhythm Incision: Breast and axilla clean and dry copy of path report given to patient Patient doing well postoperative Plan: Appointment radiation oncology Appointment medical oncology Follow-up here in 4 months CC: Dr. Tyson
[2024-01-20 12:25] VITALS: BP 110/74; PULSE 80; RESP 18; TEMP 97.9
== END ==
LOC: WWCWWP 10:48
PROVIDERS: ATTEND Surgery
DX: Z85.3 Personal history of malignant neoplasm of breast (principal)

== ENCOUNTER → 2024-02-17 | Outpatient (CLI) | payer MEDICARE ==
[2024-02-17 10:12] VITALS: BP 107/77; PULSE 82; RESP 17; TEMP 97.7
--- NOTE | 2024-02-17 10:42 | P.CON ---
Consult Note - . Consult date: 02/17/24 Assessment/Plan:: 01/20/24 Cami is status post right breast lumpectomy adn SNB on 01-11-24. 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 7 nodes removed, all (-). The patient about 1 week ago noted the right breast was swollen, this occurred after an upper respiratory infection. She is complaining of sweat, and chills. She states her breast is became heated and red. She states last night is drained. Examination: lungs: Clear Heart: Regular rate and rhythm Incision: Lateral and inferior aspect of the breast. Seropurulent drainage at the lateral aspect where there is an opening in the incision. The opening is approximately 1 cm in length. Following informed consent the area of concern in the right breast was cleaned using chlorhexidine The small area of opening in the incision was probed. The cavity was approximately 13 cm x 3 cm. A small amount of purulent drainage was present. The patient had drained spontaneously prior to coming in. There is erythema in the inferior aspect of the breast. Cultures were obtained. The wound was well irrigated. After this was clear the incision was reinforced medially and laterally. The area was anesthetized using 1% lidocaine. A 3-0 nylon suture was placed both medially and laterally. 1 inch gauze packing was used to pack the wound. The patient tolerated the procedure in stable condition. Her is taught how to pack the wound. He is going to pack this twice daily. They are going to come in tomorrow for a an appointment. Plan Appointment radiation oncology, Dr. Michael Haskins would hold on radiation therapy at this time front desk specialist: [phone] [facility], [address] Appointment here tomorrow Cultures obtained await results of cultures I have discussed with the patient and her that she did develop a wound infection, this is drained at this time. She is on oral antibiotics. She is afebrile. Should the area of erythema increase or she become febrile it may be necessary for admission with IV antibiotics. At this time we are going to continue to follow conservatively and I will see her tomorrow. CC: Dr. Tyson
== END ==
LOC: WWCWWP 09:46
PROVIDERS: ATTEND Surgery
DX: N61.1 Abscess of the breast and nipple (principal); J06.9 Acute upper respiratory infection, unspecified; L53.8 Other specified erythematous conditions; D05.11 Intraductal carcinoma in situ of right breast; Z98.890 Other specified postprocedural states; Z48.817 Encounter for surgical aftercare following surgery on the skin and subcutaneous tissue
CPT/HCPCS: 87070; 87075; 87205

== ENCOUNTER → 2024-02-18 | Outpatient (CLI) | payer MEDICARE ==
[2024-02-18 08:08] VITALS: BP 166/78; PULSE 76; RESP 16; TEMP 97.5
--- NOTE | 2024-02-18 08:33 | P.CON ---
Consult Note - . Consult date: 02/18/24 Assessment/Plan:: Cami is status post right breast lumpectomy and SNB on 01-11-24. 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 7 nodes removed, all (-). The patient about 1 week ago noted the right breast was swollen, this occurred after an upper respiratory infection. She complained of sweat, and chills. She states her breast became heated and red. She states it drained 2 days ago. She was seen in the office yesterday where the patient had seropurulent drainage at the lateral aspect which was irrigated and packed. She presents today doing well with her having change the packing last night. She does complain of tenderness at the site. There is decreased erythema. She does not have any fever or chills. Examination: The area of the incision is clean The packing is changed There is some seropurulent drainage on the packing The wound was again irrigated The erythema in the breast has decreased The size of cavity is approximately 9 cm down from 13 cm yesterday Plan Appointment radiation oncology, Dr. Michael Haskins would hold on radiation therapy at this time Home health care Packing change Patient to follow-up next week Patient to follow-up sooner any questions or concerns front end technician: [phone] [facility], [address] Appointment here Wednesday CC: Dr. Tyson
== END ==
LOC: WWCWWP 07:25
PROVIDERS: ATTEND Surgery
DX: Z48.817 Encounter for surgical aftercare following surgery on the skin and subcutaneous tissue (principal); J06.9 Acute upper respiratory infection, unspecified; L53.8 Other specified erythematous conditions

== ENCOUNTER → 2024-02-22 | Outpatient (CLI) | payer MEDICARE ==
--- NOTE | 2024-02-22 08:19 | P.CON ---
Consult Note - . Consult date: 02/22/24 Assessment/Plan:: 02-18-24 Cami is status post right breast lumpectomy and SNB on 01-11-24. 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 7 nodes removed, all (-). The patient about 1 week ago noted the right breast was swollen, this occurred after an upper respiratory infection. She complained of sweat, and chills. She states her breast became heated and red. She states it drained 2 days ago. She was seen in the office yesterday where the patient had seropurulent drainage at the lateral aspect which was irrigated and packed. She presents today doing well with her having change the packing last night. She does complain of tenderness at the site. There is decreased erythema. She does not have any fever or chills. 02-22-24 Come in today for packing change. She has been afebrile and the erythema has resolved. She is completing her antibiotics, Amoxicillin/clavulanic acid. The biology revealed that this was Staph aureus and sensitive. Case with Dr. Michael Baron and she is going to be seen by him again for radiation therapy in approximately 1 month. Examination: The area of the incision is clean The packing is changed There is some seropurulent drainage on the packing The wound was again irrigated The erythema in the breast has decreased Plan Appointment radiation oncology, Dr. Michael Haskins would hold on radiation therapy at this time Home health care on hold Packing change BID Patient to follow-up Wednesday Patient to follow-up sooner any questions or concerns front desk attendant: [phone] [facility], [address] Appointment here Wednesday
[2024-02-22 08:48] VITALS: BP 167/72; PULSE 60; RESP 16; TEMP 98
== END ==
LOC: WWCWWP 07:59
PROVIDERS: ATTEND Surgery
DX: J06.9 Acute upper respiratory infection, unspecified (principal); Z90.89 Acquired absence of other organs

== ENCOUNTER → 2024-02-25 | Outpatient (CLI) | payer MEDICARE ==
--- NOTE | 2024-02-25 08:31 | P.CON ---
Consult Note - . Consult date: 02/25/24 Assessment/Plan:: 02-25-24 Cami is status post right breast lumpectomy and SNB on 01-11-24. 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 7 nodes removed, all (-). The patient about 2 weeks ago noted the right breast was swollen, this occurred after an upper respiratory infection. She complained of sweat, and chills. She states her breast became heated and red. She states it drained following this. She was seen in the office on 02-17-24 where the patient had seropurulent drainage at the lateral aspect of the incision which was drained, irrigated and packed. Completed a course of antibiotic therapy erythema has resolved drainage has markedly decreased her is packing the wound at home. She comes in today to have this evaluated. Examination: The area of the incision is clean The packing is changed There is some seropurulent drainage on the packing decreased As of the wound is 6.5 cm in length The wound was again irrigated The erythema in the breast has decreased Plan Appointment radiation oncology, Dr. Michael Haskins would hold on radiation therapy at this time Home health care on hold Packing change BID Patient to follow up in two weeks Patient to follow-up sooner any questions or concerns medical front desk specialist: [phone] [facility], [address] Appointment here Wednesday
[2024-02-25 08:57] VITALS: BP 159/89; PULSE 83; RESP 16; TEMP 97.8
== END ==
LOC: WWCWWP 08:01
PROVIDERS: ATTEND Surgery
DX: J06.9 Acute upper respiratory infection, unspecified (principal); T81.89XA Other complications of procedures, not elsewhere classified, initial encounter

== ENCOUNTER → 2024-03-07 | Outpatient (CLI) | payer MEDICARE ==
--- NOTE | 2024-03-07 08:23 | P.CON ---
Consult Note - . Consult date: 03/07/24 Assessment/Plan:: 02-25-24 Cami is status post right breast lumpectomy and SNB on 01-11-24. 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 7 nodes removed, all (-). The patient about 4 weeks ago noted the right breast was swollen, this occurred after an upper respiratory infection. She complained of sweat, and chills. She states her breast became heated and red. She states it drained following this. She was seen in the office on 02-17-24 where the patient had seropurulent drainage at the lateral aspect of the incision which was drained, irrigated and packed. Completed a course of antibiotic therapy erythema has resolved drainage has markedly decreased her is packing the wound at home. She is not complaining of any fever or chills. She comes in today to have this evaluated. Examination: The area of the incision is clean The packing is changed There is some seropurulent drainage on the packing decreased Size of the wound is 4.5 cm in length The wound was again irrigated The erythema in the breast has decreased Plan Appointment radiation oncology, Dr. Michael Haskins would hold on radiation therapy at this time Home health care on hold Packing change BID Patient to follow up in one week Patient to follow-up sooner any questions or concerns it desktop support technician: [phone] [facility], [address] Appointment here next week
[2024-03-07 09:14] VITALS: BP 148/71; PULSE 80; RESP 17; TEMP 97.8
== END ==
LOC: WWCWWP 07:58
PROVIDERS: ATTEND Surgery
DX: J06.9 Acute upper respiratory infection, unspecified (principal); N63.10 Unspecified lump in the right breast, unspecified quadrant; Z90.89 Acquired absence of other organs

== ENCOUNTER → 2024-03-14 | Outpatient (CLI) | payer MEDICARE ==
--- NOTE | 2024-03-14 08:19 | P.CON ---
Consult Note - . Consult date: 03/14/24 Assessment/Plan:: 03-14-24 Cami is status post right breast lumpectomy and SNB on 01-11-24. 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 7 nodes removed, all (-). The patient about 5 weeks ago noted the right breast was swollen, this occurred after an upper respiratory infection. She complained of sweat, and chills. She states her breast became heated and red. She states it drained following this. She was seen in the office on 02-17-24 where the patient had seropurulent drainage at the lateral aspect of the incision which was drained, irrigated and packed. Completed a course of antibiotic therapy erythema has resolved drainage has markedly decreased her is packing the wound at home. She is not complaining of any fever or chills. She comes in today to have this evaluated. Examination: The area of the incision is clean The packing is changed There is some seropurulent drainage on the packing decreased Size of the wound is 4.5 cm in length No erythema in the breast has decreased Plan Appointment radiation oncology, Dr. Michael Haskins would hold on radiation therapy at this time Home health care on hold Packing change BID Patient to follow up in three weeks sooner any concerns Patient to follow-up sooner any questions or concerns I will be gone from March 18 to April 02, the patient has a an appointment for April 04. She has any concerns in the interim she will see one of my colleagues. desktop support technician: [phone] [facility], [address] Appointment here next week
[2024-03-14 08:46] VITALS: BP 138/75; PULSE 76; RESP 16; TEMP 97.8
== END ==
LOC: WWCWWP 07:55
PROVIDERS: ATTEND Surgery
DX: N63.10 Unspecified lump in the right breast, unspecified quadrant (principal); J06.9 Acute upper respiratory infection, unspecified; Z48.817 Encounter for surgical aftercare following surgery on the skin and subcutaneous tissue; Z98.890 Other specified postprocedural states

== ENCOUNTER → 2024-04-04 | Outpatient (CLI) | payer MEDICARE ==
--- NOTE | 2024-04-04 08:16 | P.PN ---
Subjective Progress Note Date: 04/04/24 03-14-24 Cami is status post right breast lumpectomy and SNB on 01-11-24. 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 7 nodes removed, all (-). The patient about 5 weeks ago noted the right breast was swollen, this occurred after an upper respiratory infection. She complained of sweat, and chills. She states her breast became heated and red. She states it drained following this. She was seen in the office on 02-17-24 where the patient had seropurulent drainage at the lateral aspect of the incision which was drained, irrigated and packed. Completed a course of antibiotic therapy erythema has resolved drainage has markedly decreased her is packing the wound at home. She is not complaining of any fever or chills. She comes in today to have this evaluated. Examination: The area of the incision is clean The packing is changed There is some seropurulent drainage on the packing decreased Size of the wound is 4.5-5 cm in depth No erythema in the breast Plan Appointment radiation oncology, Dr. Michael Haskins would hold on radiation therapy at this time Home health care on hold Packing change BID Patient to follow up in two weeks sooner any concerns Patient to follow-up sooner any questions or concerns front desk clerk: [phone] [facility], [address] Appointment here next week
[2024-04-04 15:07] VITALS: BP 149/85; PULSE 76; RESP 16; TEMP 98.1
== END ==
LOC: WWCWWP 08:00
PROVIDERS: ATTEND Surgery
DX: Z48.817 Encounter for surgical aftercare following surgery on the skin and subcutaneous tissue (principal); N63.10 Unspecified lump in the right breast, unspecified quadrant; Z98.890 Other specified postprocedural states; Z85.3 Personal history of malignant neoplasm of breast

== ENCOUNTER → 2024-04-18 | Outpatient (CLI) | payer MEDICARE ==
--- NOTE | 2024-04-18 08:37 | P.CON ---
Consult Note - . Consult date: 04/18/24 Assessment/Plan:: 04/04/24 03-14-24 Cami is status post right breast lumpectomy and SNB on 01-11-24. 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 7 nodes removed, all (-). The patient was seen on 02-17-24 and noted the right breast was swollen, this occurred after an upper respiratory infection. She complained of sweat, and chills. She states her breast became heated and red. She states it drained following this. She was seen in the office on 02-17-24 where the patient had seropurulent drainage at the lateral aspect of the incision which was drained, irrigated and packed. Completed a course of antibiotic therapy erythema has resolved drainage has markedly decreased her is packing the wound at home. She is not complaining of any fever or chills. She comes in today to have this evaluated. Examination: The area of the incision is clean The packing is changed There is some seropurulent drainage on the packing decreased Size of the wound is 4 cm in depth No erythema in the breast Plan Appointment radiation oncology, Dr. Michael Haskins would hold on radiation therapy at this time Home health care on hold Packing change BID Patient to follow up in two weeks sooner any concerns Patient to follow-up sooner any questions or concerns front office coordinator: [phone] [facility], [address] Appointment here next week
[2024-04-18 08:52] VITALS: BP 145/80; PULSE 71; RESP 16; TEMP 98.4
== END ==
LOC: WWCWWP 08:09
PROVIDERS: ATTEND Surgery
DX: Z48.817 Encounter for surgical aftercare following surgery on the skin and subcutaneous tissue (principal); N63.10 Unspecified lump in the right breast, unspecified quadrant; J06.9 Acute upper respiratory infection, unspecified; Z98.890 Other specified postprocedural states; Z85.3 Personal history of malignant neoplasm of breast

== ENCOUNTER → 2024-05-09 | Outpatient (CLI) | payer MEDICARE ==
[2024-05-09 08:49] VITALS: BP 176/73; PULSE 74; RESP 17; TEMP 98.1
--- NOTE | 2024-05-09 09:29 | P.CON ---
Consult Note - . Consult date: 05/09/24 Assessment/Plan:: 05-04-24 Assessment/Plan:: 04-18-24 04/04/24 03-14-24 Cami is status post right breast lumpectomy and SNB on 01-11-24. 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 7 nodes removed, all ( -). The patient was seen on 02-17-24 and noted the right breast was swollen, this occurred after an upper respiratory infection. She complained of sweat, and chills. She states her breast became heated and red. She states it drained following this. She was seen in the office on 02-17-24 where the patient had seropurulent drainage at the lateral aspect of the incision which was drained, irrigated and packed. Completed a course of antibiotic therapy erythema has resolved drainage has markedly decreased her is packing the wound at home. She is not complaining of any fever or chills. She comes in today to have this evaluated. Examination: Lungs: Clear Heart: Regular rate and rhythm The area of the incision is clean The packing is changed There is some seropurulent drainage on the packing decreased Size of the wound is decreased frm about 4 cm in depth to approximately 2.5 cm in depth No erythema in the breast Plan Appointment radiation oncology, Dr. Michael Haskins would hold on radiation therapy at this time Home health care on hold Packing change BID Patient to follow up in 4 weeks sooner any concerns Patient to follow-up sooner any questions or concerns front office agent: [phone] [place] [address]. [address] [facility], [address] Appointment here next week
== END ==
LOC: WWCWWP 08:01
PROVIDERS: ATTEND Surgery
DX: N63.10 Unspecified lump in the right breast, unspecified quadrant (principal); J06.9 Acute upper respiratory infection, unspecified

== ENCOUNTER → 2024-06-15 | Outpatient (CLI) | payer MEDICARE ==
[2024-07-06 06:18] VITALS: BP 163/80; PULSE 73; RESP 17; TEMP 97.8
--- NOTE | 2024-07-20 14:45 | WWPN ---
[facility] - PROGRESS NOTE SUBJECTIVE: The patient is status post right breast lumpectomy and sentinel node biopsy on 01/11/2024. Her pathology revealed high-grade DCIS. All margins were negative, the lesion was 3.3 cm in size. Seven nodes were removed, all were negative. Post procedure, the patient developed an infection with seropurulent drainage at the lateral aspect of the incision. This was drained and irrigated and packed. She was seen in the office initially for this on 02/17/2024. She was given a course of antibiotic therapy and wound care. At this time, the incision has completely healed and she is doing well. PHYSICAL EXAMINATION: BREASTS: Area of the incision is clean and dry and appears to be completely healed. PLAN: 1. Appointment with Radiation Oncology, Dr. Michael Haskins. 2. Follow up Medical Oncology. 3. Follow up here in 4 months. 4. The patient to follow up sooner any questions or concerns. MMODL / IJN: [id number] /
== END ==
LOC: WWCWWP 14:22
PROVIDERS: ATTEND Surgery
DX: Z85.3 Personal history of malignant neoplasm of breast

== ENCOUNTER → 2024-11-23 | Outpatient (CLI) | payer MEDICARE ==
[2024-11-23 09:05] VITALS: BP 144/80; PULSE 91; RESP 16; TEMP 98.2
--- NOTE | 2024-11-23 09:54 | P.PN ---
Subjective Progress Note Date: 11/23/24 Principal diagnosis: right breast DCIS 01-11-24 DCIS right breast Cami is a 68-year-old female seen in consultation for Dr. Tyson regarding a diagnosis of DCIS of the right breast. She underwent a bilateral mammogram on 09-29-2023. A diagnostic mammogram of the right breast was recommended and performed on 10-08-2023. This revealed some pleomorphic calcifications in the right breast in the upper outer quadrant at 10:00. Lesions of concern were identified in the left breast. The patient underwent a stereotactic core biopsy of the right breast lesion. This was done on 11-05-2023. This revealed DCIS ER positive, high nuclear grade. Her mammograms were reviewed with Dr. Kowalski who recommended additional mag views of the left breast and that prior mammogrmas be obtained. She obtains mammograms regularly. She does not feel any new lumps masses or nodules of concern in either breast. She has not had any recent breast trauma or infection. She had a cyst removed from her left breast in the past. Old mammograms were reviewed and stero biopsy of two sites in the left breast were recommended. These were done on 12-16-23 and both sites were benign. The are of DCIS in the right breast measures about 2 by 2 cm. Her case was presented at tumor board aon 12-21-23 and recommendation for right needle localization lumpectomy and SNB, possible AND. The patient on 01-11-24 had a lumpecotmy and SNB. The lesion was 3.3 cm DCIS all margins (-). Seven nodes removed all (-). Post operatively she developed an open wound with seropurulant drainage. She was treated with packing of the wound and antibiotic. She has seen radiation oncology Dr. Haskins. Note Dr. Haskins 08-21-24 reviewed; 4256 centigrade to the right breast with 1000 cGy boost to the right lumpectomy cavity she tolerated the treatment well she did develop some dermatitis but was treated with Eucerin cream She is taking letrazole from medical oncology, unsure of the DrJuan name he is out of [facility] she has been on this for about 4 months Her last bilateral mammogram was onver one year ago Complaining of any new lumps masses or nodules of concern in either breast. caffeine: 2 cups/day nicotine: stopped 35 years ago chocolate: none BCP: used for about 15 years hormones: used them for about 2 years at about 52 Family History: parents young so unknown; ? father bone cancer Hormonal History: menarche: 17 , breast fed: no, age at first : 19 menopause: 52 hormones: about 2 years Surgical history: appy cyst in breast tonsil right breast lumpectomy and SNB Medical History: HTN diabetes Social History: nicotine: stopped 35 years ago used to smoke 2 PPD for about 15 years alcohol: occasional drugs: none - Constitutional Constitutional: Denies chills, Denies fever - EENT Eyes: denies blurred vision, denies pain Ears: deny: decreased hearing, tinnitus Ears, nose, mouth and throat: Denies headache, Denies sore throat - Breasts Breasts: bilateral: as per HPI - Cardiovascular Cardiovascular: Denies chest pain, Denies shortness of breath - Respiratory Respiratory: Denies cough - Gastrointestinal Gastrointestinal: Denies abdominal pain, Denies diarrhea, Denies nausea, Denies vomiting - Genitourinary (Female) Genitourinary: Denies dysuria, Denies hematuria - Menstruation Menstruation: Reports postmenopausal - Musculoskeletal Musculoskeletal: Denies myalgias - Integumentary Integumentary: Denies pruritus, Denies rash - Neurological Neurological: Denies numbness, Denies weakness - Psychiatric Psychiatric: Denies anxiety, Denies depression - Endocrine Endocrine: Denies fatigue, Denies weight change - Hematologic/Lymphatic Comment: none - Allergic/Immunologic Allergic/Immunologic: Reports as per HPI Past Medical History Past Medical History: Diabetes Mellitus, Hypertension History of Any Multi-Drug Resistant Organisms: None Reported Past Surgical History: Adenoidectomy, Appendectomy, Tonsillectomy Past Psychological History: No Psychological Hx Reported Smoking Status: Former smoker Past Alcohol Use History: None Reported Past Drug Use History: None Reported Medications and Allergies Home Medications Medication Instructions Recorded Confirmed Type Atorvastatin Calcium [Lipitor] 5 mg PO Q48H 09/07/21 11/26/23 History Losartan Potassium 100 mg PO DAILY 09/07/21 11/26/23 History glipiZIDE [Glucotrol XL] 2.5 mg PO BID 09/07/21 11/26/23 History metFORMIN HCL [Glucophage XR] 1,500 mg PO W/SUPPER 09/07/21 11/26/23 History Allergies Allergy/AdvReac Type Severity Reaction Status Date / Time No Known Allergies Allergy Verified 10/01/21 17:07 Objective - Vital Signs Vital signs: Vital Signs Temp 98.2 F 11/23/24 09:04 Pulse 91 11/23/24 09:04 Resp 16 11/23/24 09:04 BP 144/80 11/23/24 09:04 Pulse Ox 99 11/23/24 09:04 FiO2 Intake & Output 11/22/24 11/23/24 11/23/24 18:59 06:59 18:59 Weight 73.936 kg - Constitutional General appearance: Present: cooperative - EENT Eyes: Present: EOMI ENT: Present: hearing grossly normal - Neck Neck: Present: normal ROM - Respiratory Respiratory: bilateral: CTA - Cardiovascular Rhythm: regular Heart sounds: normal: S1, S2 - Integumentary Integumentary: Present: normal turgor - Musculoskeletal Musculoskeletal: Present: gait normal - Psychiatric Psychiatric: Present: A&O x's 3, appropriate affect, intact judgment & insight - Additional findings Additional findings: Breast Exam: BRA: 38B Inspection: Bilateral grade 2 ptosis, mid chest radiation tattoo Palpation: Right breast: Multi positional exam fibrocystic changes no dominant masses or nodules of concern, incision clean and dry, totally healed at this time, some scar tissue at the lumpectomy site Right axilla: No adenopathy of concern Left breast: Multi positional exam fibrocystic changes no dominant masses or nodules of concern Left axilla: No adenopathy of concern Assessment and Plan Assessment: Impression: right breast DCIS Patient completed radiation therapy Patient is on letrozole Plan: Bilateral mammogram Follow-up after mammogram If the mammogram findings are benign then the patient will follow-up here in 6 months Continue to follow with medical and radiation oncology CC: Dr. Tyson
== END ==
LOC: WWCWWP 08:49
PROVIDERS: ATTEND Surgery
DX: D05.11 Intraductal carcinoma in situ of right breast (principal); Z92.3 Personal history of irradiation

== ENCOUNTER → 2025-05-04 | Outpatient (CLI) | payer MEDICARE ==
[2025-05-04 10:18] VITALS: BP 152/72; PULSE 77; RESP 17; TEMP 97.4
--- NOTE | 2025-05-04 10:34 | P.PN ---
Subjective Progress Note Date: 05/04/25 right breast DCIS 01-11-24 DCIS right breast Cami is a 68-year-old female seen in consultation for Dr. Tyson regarding a diagnosis of DCIS of the right breast. She underwent a bilateral mammogram on 09-29-2023. A diagnostic mammogram of the right breast was recommended and performed on 10-08-2023. This revealed some pleomorphic calcifications in the right breast in the upper outer quadrant at 10:00. Lesions of concern were identified in the left breast. The patient underwent a stereotactic core biopsy of the right breast lesion. This was done on 11-05-2023. This revealed DCIS ER positive, high nuclear grade. Her mammograms were reviewed with Dr. Kowalski who recommended additional mag views of the left breast and that prior mammogrmas be obtained. She obtains mammograms regularly. She does not feel any new lumps masses or nodules of concern in either breast. She has not had any recent breast trauma or infection. She had a cyst removed from her left breast in the past. Old mammograms were reviewed and stero biopsy of two sites in the left breast were recommended. These were done on 12-16-23 and both sites were benign. The are of DCIS in the right breast measures about 2 by 2 cm. Her case was presented at tumor board aon 12-21-23 and recommendation for right needle localization lumpectomy and SNB, possible AND. The patient on 01-11-24 had a lumpecotmy and SNB. The lesion was 3.3 cm DCIS all margins (-). Seven nodes removed all (-). Post operatively she developed an open wound with seropurulant drainage. She was treated with packing of the wound and antibiotic. She has seen radiation oncology Dr. Haskins. Note Dr. Haskins 08-21-24 reviewed; 4256 centigrade to the right breast with 1000 cGy boost to the right lumpectomy cavity she tolerated the treatment well she did develop some dermatitis but was treated with Eucerin cream She is taking letrazole from medical oncology, unsure of the Dr. name he is out of [facility] she has been on this for about 4 months Her last bilateral mammogram was onver one year ago Complaining of any new lumps masses or nodules of concern in either breast. 05-04-25 Cami is a 69-year-old female status post lumpectomy and sentinel node biopsy on 01-11-2024 for DCIS. The lesion was 3.3 cm. All margins negative. 7 nodes removed all negative. Postoperatively she developed an open wound with seropurulent drainage and was treated with packing of the wound and antibiotics. She was followed by radiation oncology 4256 centigrade to the right breast with 1000 cGy boost to the right lumpectomy cavity she tolerated the treatment well she did develop some dermatitis but was treated with Eucerin crea m She was treated with letrozole by a medical oncologist from [facility] note 03-08-25 Dr. Srinivasan reviewed; continue femora bilateral mammogram 12-04-24 BIRAD 2 personally interpreted She has had a 35 pound weight loss intentional and is feeling well. She is not complaining of any new lumps masses or nodules of concern in either breast. caffeine: 2 cups/day nicotine: stopped 35 years ago chocolate: none BCP: used for about 15 years hormones: used them for about 2 years at about 52 Family History: parents young so unknown; ? father bone cancer Hormonal History: menarche: 17 , breast fed: no, age at first : 19 menopause: 52 hormones: about 2 years Surgical history: appy cyst in breast tonsil right breast lumpectomy and SNB Medical History: HTN diabetes Social History: nicotine: stopped 35 years ago used to smoke 2 PPD for about 15 years alcohol: occasional drugs: none - Constitutional Constitutional: Denies chills, Denies fever - EENT Eyes: denies blurred vision, denies pain Ears: deny: decreased hearing, tinnitus Ears, nose, mouth and throat: Denies headache, Denies sore throat - Breasts Breasts: bilateral: as per HPI - Cardiovascular Cardiovascular: Denies chest pain, Denies shortness of breath - Respiratory Respiratory: Denies cough - Gastrointestinal Gastrointestinal: Denies abdominal pain, Denies diarrhea, Denies nausea, Denies vomiting - Genitourinary (Female) Genitourinary: Denies dysuria, Denies hematuria - Menstruation Menstruation: Reports postmenopausal - Musculoskeletal Musculoskeletal: Denies myalgias - Integumentary Integumentary: Denies pruritus, Denies rash - Neurological Neurological: Denies numbness, Denies weakness - Psychiatric Psychiatric: Denies anxiety, Denies depression - Endocrine Endocrine: Denies fatigue, Denies weight change - Hematologic/Lymphatic Comment: none - Allergic/Immunologic Allergic/Immunologic: Reports as per HPI Past Medical History Past Medical History: Diabetes Mellitus, Hypertension History of Any Multi-Drug Resistant Organisms: None Reported Past Surgical History: Adenoidectomy, Appendectomy, Tonsillectomy Past Psychological History: No Psychological Hx Reported Smoking Status: Former smoker Past Alcohol Use History: None Reported Past Drug Use History: None Reported Medications and Allergies Home Medications Medication Instructions Recorded Confirmed Type Atorvastatin Calcium [Lipitor] 5 mg PO Q48H 09/07/21 11/26/23 History Losartan Potassium 100 mg PO DAILY 09/07/21 11/26/23 History glipiZIDE [Glucotrol XL] 2.5 mg PO BID 09/07/21 11/26/23 History metFORMIN HCL [Glucophage XR] 1,500 mg PO W/SUPPER 09/07/21 11/26/23 History Allergies Allergy/AdvReac Type Severity Reaction Status Date / Time No Known Allergies Allergy Verified 10/01/21 17:07 Objective - Vital Signs Vital signs: Vital Signs Temp 97.4 F L 05/04/25 10:15 Pulse 77 05/04/25 10:15 Resp 17 05/04/25 10:15 BP 152/72 05/04/25 10:15 Pulse Ox 100 05/04/25 10:15 FiO2 Intake & Output 05/03/25 05/04/25 05/04/25 18:59 06:59 18:59 Weight 67.132 kg - Constitutional General appearance: Present: cooperative - EENT Eyes: Present: EOMI ENT: Present: hearing grossly normal - Neck Neck: Present: normal ROM - Respiratory Respiratory: bilateral: CTA - Cardiovascular Rhythm: regular Heart sounds: normal: S1, S2 - Integumentary Integumentary: Present: normal turgor - Musculoskeletal Musculoskeletal: Present: gait normal - Psychiatric Psychiatric: Present: A&O x's 3, appropriate affect, intact judgment & insight - Additional findings Additional findings: Breast Exam: BRA: 36B inspection: Bilateral grade 2 ptosis Palpation: Right breast: Multi positional exam fibrocystic changes, postsurgical and radiation changes with some scarring at the lumpectomy site but no new dominant masses or nodules of concern Right axilla: No adenopathy of concern Left breast: Multi positional exam fibrocystic changes, no dominant masses or nodules of concern Left axilla: No adenopathy of concern Assessment and Plan Assessment: Impression: Patient doing well no evidence of any recurrent disease right breast no disease noted in the left breast Recent bilateral mammogram was 2 10 25 benign BI-RADS 2 personally reviewed and interpreted Patient presently on letrozole tolerating without difficulty Plan: Continue letrozole as per medical oncology, continue follow-up with medical oncology Bilateral mammogram in 1 year Follow-up in 6 months for close surveillance Follow-up sooner any questions or concerns CC: Dr. Tyson
== END ==
LOC: WWCWWP 09:54
PROVIDERS: ATTEND Surgery
DX: D05.11 Intraductal carcinoma in situ of right breast (principal)